=== PATIENT | male | born 1985 | race Caucasian/White ===

== ENCOUNTER 2023-02-25 04:41 | Emergency (ER) | payer BC ==
[2023-02-25 04:50] VITALS: BP 139/79; PULSE 95; RESP 18; TEMP 97.4
--- NOTE | 2023-02-25 05:02 | ED ---
General Adult HPI - General Chief complaint: Skin/Abscess/Foreign Body Stated complaint: foriegn body in rectum Time Seen by Provider: 02/25/23 04:51 Source: patient Mode of arrival: ambulatory Limitations: no limitations - History of Present Illness Initial comments: Dictation was produced using [employer] dictation software. please excuse any grammatical, word or spelling errors. Chief Complaint: 37-year-old male presents with rectal foreign body History of Present Illness: 37-year-old male presents emergency Department with rectal foreign body. Patient states that he was being intubated with his partner last night when shampoo bottle was placed into his rectum upside down. They tried to remove it however was unsuccessful. Patient denies any abdominal pain. No nausea vomiting. The ROS documented in this emergency department record has been reviewed and confirmed by me. Those systems with pertinent positive or negative responses have been documented in the HPI. All other systems are other negative and/or noncontributory. PHYSICAL EXAM: General Impression: Alert and oriented x3, not in acute distress HEENT: Normocephalic atraumatic, extra-ocular movements intact, pupils equal and reactive to light bilaterally, mucous membranes moist. Cardiovascular: Heart regular rate and rhythm Chest: Able to complete full sentences, no retractions, no tachypnea Abdomen: abdomen soft, non-tender, non-distended, no organomegaly Musculoskeletal: Pulses present and equal in all extremities, no peripheral edema Motor: no focal deficits noted Neurological: CN II-XII grossly intact, no focal motor or sensory deficits noted Skin: Intact with no visualized rashes Psych: Normal affect and mood Rectal exam: Foreign body palpated. ED course: 37-year-old male presents emergency department for rectal foreign body. Vital Signs upon arrival are within acceptable limits. Nursing notes and chart review was performed Patient is placed in lithotomy position. Foreign body was successfully removed. Patient observed emergency Department discharge. Percussion discussed. Was pt. sent in by a medical professional or institution (, PA, [employer]ADER, urgent care, hospital, or senior care...) When possible be specific @ -No Did you speak to anyone other than the patient for history (EMS, parent, family, police, friend...)? What history was obtained from this source @ -No Did you review nursing and triage notes (agree or disagree)? Why? @ -I reviewed and agree with nursing and triage notes Were old charts reviewed (outside hosp., previous admission, EMS record, old EKG, old radiological studies, urgent care reports/EKG's, senior care records)? Report findings @ -No old charts were reviewed Differential Diagnosis (chest pain, altered mental status, abdominal pain women, abdominal pain men, vaginal bleeding, musculoskeletal, weakness, fever, dyspnea, syncope, headache, dizziness, GI bleed, back pain, seizure, CVA, palpatations, mental health)? @ -not applicable EKG interpreted by me (3pts min.). @ -None done X-rays interpreted by me (1pt min.). @ -Rectal foreign body CT interpreted by me (1pt min.). @ -None done U/S interpreted by me (1pt. min.). @ -None done What testing was considered but not performed or refused? (CT, X-rays, U/S, labs)? Why? @ -None What meds were considered but not given or refused? Why? @ -None Did you discuss the management of the patient with other professionals (professionals i.e. , PA, [employer]ADER, lab, RT, psych nurse, social sciences department chair, data management consultant, te acher, learning officer, case filler)? Give summary @ -No Was smoking cessation discussed for >3mins.? @ -No Was critical care preformed (if so, how long)? @ -No Were there social determinants of health that impacted care today? How? (Homelessness, low income, unemployed, alcoholism, drug addiction, transportation, low edu. Level, literacy, decrease access to med. care, long term, rehab)? @ -No Was there de-escalation of care discussed even if they declined (Discuss DNR or withdrawal of care, Hospice)? DNR status @ -No What co-morbidities impacted this encounter? (DM, HTN, Smoking, COPD, CAD, Cancer, CVA, ARF, Chemo, Hep., AIDS, mental health diagnosis, sleep apnea, morbid obesity)? @ -None Was patient admitted / discharged? Hospital course, mention meds given and rou te, prescriptions, significant lab abnormalities, going to OR and other pertinent info. @ -See above Undiagnosed new problem with uncertain prognosis? @ -No Drug Therapy requiring intensive monitoring for toxicity (Heparin, Nitro, Insulin, Cardizem)? @ -No Were any procedures done? @ -Rectal foreign body removal Diagnosis/symptom? Acute, or Chronic, or Acute on Chronic? Uncomplicated (without systemic symptoms) or Complicated (systemic symptoms)? @ -1. Rectal foreign body Side effects of treatment? @ -No Exacerbation, Progression, or Severe Exacerbation? @ -No Poses a threat to life or bodily function? How? (Chest pain, [place], [place], pneumonia, PE, COPD, DKA, ARF, appy, cholecystitis, CVA, Diverticulitis, Homicidal, Suicidal, threat to staff... and all critical care pts) @ -No - Related Data Allergies Allergy/AdvReac Type Severity Reaction Status Date / Time No Known Allergies Allergy Verified 02/25/23 04:46 Review of Systems ROS Statement: Those systems with pertinent positive or pertinent negative responses have been documented in the HPI. ROS Other: All systems not noted in ROS Statement are negative. Past Medical History Past Medical History: No Reported History History of Any Multi-Drug Resistant Organisms: None Reported Past Surgical History: No Surgical Hx Reported Past Psychological History: No Psychological Hx Reported Smoking Status: Current every day smoker Past Alcohol Use History: Occasional Past Drug Use History: None Reported General Exam Limitations: no limitations Course Vital Signs 02/25/23 04:46 Temperature 97.4 F L Pulse Rate 95 Respiratory 18 Rate Blood Pressure 139/79 O2 Sat by Pulse 99 Oximetry Procedures - Forgein Body Removal Soft Tissue Consent Obtained: emergent situation Site: other (rectum) Foreign Body Suspected: Other (shampoo bottle) Foreign Body Removed: yes Foreign Body Removal Technique: Other (lithotomy with suprapubic pressure) Patient Tolerated Procedure: well Disposition Clinical Impression: Rectal foreign body Disposition: HOME SELF-CARE Condition: Good Instructions (If sedation given, give patient instructions): Rectal Foreign Body (ED) Is patient prescribed a controlled substance at d/c from ED?: No Referrals: None,Stated [Primary Care Provider] - 1-2 days Time of Disposition: 05:36
[2023-02-25] MEDS ORDERED: HYDROmorphone 1 MG/ML 1 ML SYRINGE IM STA (05:11)
--- NOTE | 2023-02-25 07:12 | XR ---
Abdomen. HISTORY: Foreign body in rectum. COMPARISON: None. TECHNIQUE: 3 views of the abdomen were obtained. These: There are 2 rectangular shaped foreign bodies in the rectum which are partially air-filled. The bowel gas pattern is normal and there is no evidence of obstruction. The lung bases are clear and there is no free air beneath the diaphragm. The osseous structures are intact. IMPRESSION: Foreign bodies within the rectum. No evidence of bowel obstruction or free air.
== END 2023-02-25 06:55 | disposition home or self-care (01) ==
LOC: EC 04:41
DX: T18.5XXA Foreign body in anus and rectum, initial encounter (principal); F17.200 Nicotine dependence, unspecified, uncomplicated
CPT/HCPCS: 74018; 99284; 96372; 45999; J1170

== ENCOUNTER 2025-03-26 05:05 | Inpatient (IN) | payer BC ==
--- NOTE | 2025-03-26 05:28 | ED ---
Syncope HPI - General Source: patient, RN notes reviewed, old records reviewed Mode of arrival: ambulatory Limitations: no limitations - History of Present Illness MD Complaint: loss of consciousness, almost passed out, collapsed -: days(s) Prodromal Symptoms: headache Description of Event: tonic-clonic movements -: second(s) Witnessed: yes - by bystander Injuries Sustained Associated with Event: None Current Symptoms: lightheaded History: other (Drug abuse) Context: during exertion, getting out of bed Treatments Prior to Arrival: none <Alistair Stevens - Last Filed: 03/30/25 19:32> <Joanie Be - Last Filed: 04/03/25 12:36> - General Chief Complaint: Fall Stated Complaint: Syncope Time Seen by Provider: 03/26/25 05:17 - History of Present Illness Initial Comments: This is a 39-year-old male to the ER for evaluation patient presents with possible syncopal event. Patient states he feels like he woke up in the shower admits to cocaine use yesterday denying any other drugs or alcohol denying any injuries or headaches, denying any chest pain or shortness of breath, denying any abdominal (Alistair Stevens) - Related Data Home Medications Medication Instructions Recorded Confirmed Dutasteride 0.5 mg PO DAILY 03/28/25 03/28/25 Allergies Allergy/AdvReac Type Severity Reaction Status Date / Time No Known Allergies Allergy Verified 03/26/25 10:31 Review of Systems ROS Other: All systems not noted in ROS Statement are negative. <Alistair Stevens - Last Filed: 03/30/25 19:32> ROS Other: All systems not noted in ROS Statement are negative. <Joanie Be - Last Filed: 04/03/25 12:36> ROS Statement: Those systems with pertinent positive or pertinent negative responses have been documented in the HPI. Past Medical History Past Medical History: No Reported History History of Any Multi-Drug Resistant Organisms: None Reported Past Surgical History: No Surgical Hx Reported Past Psychological History: No Psychological Hx Reported Smoking Status: Current every day smoker Past Alcohol Use History: Occasional Past Drug Use History: Cocaine - Past Family History Father Family Medical History: Myocardial Infarction (SD) <Alistair Stevens - Last Filed: 03/30/25 19:32> General Exam Limitations: no limitations General appearance: alert, in no apparent distress, anxious Head exam: Present: atraumatic, normocephalic, normal inspection Eye exam: Present: normal appearance, PERRL, EOMI. Absent: scleral icterus, conjunctival injection, periorbital swelling ENT exam: Present: normal exam, mucous membranes moist Neck exam: Present: normal inspection. Absent: tenderness, meningismus, lymphadenopathy Respiratory exam: Present: normal lung sounds bilaterally. Absent: respiratory distress, wheezes, rales, rhonchi, stridor Cardiovascular Exam: Present: normal rhythm, tachycardia, normal heart sounds. Absent: systolic murmur, diastolic murmur, rubs, gallop, clicks GI/Abdominal exam: Present: soft, normal bowel sounds. Absent: distended, tenderness, guarding, rebound, rigid Extremities exam: Present: normal inspection, full ROM, normal capillary refill. Absent: tenderness, pedal edema, joint swelling, calf tenderness Back exam: Present: normal inspection Neurological exam: Present: alert, oriented X3, CN II-XII intact Psychiatric exam: Present: normal affect, normal mood Skin exam: Present: warm, dry, intact, normal color. Absent: rash <Alistair Stevens - Last Filed: 03/30/25 19:32> Course <Alistair Stevens - Last Filed: 03/30/25 19:32> Vital Signs 03/26/25 03/26/25 03/26/25 05:07 07:14 09:09 Temperature 97.3 F L Pulse Rate 111 H 97 78 Respiratory 20 18 18 Rate Blood Pressure 152/93 152/93 132/79 O2 Sat by Pulse 99 98 97 Oximetry 03/26/25 03/26/25 12:24 14:41 Temperature 98.2 F Pulse Rate 77 66 Respiratory 18 18 Rate Blood Pressure 139/85 106/53 O2 Sat by Pulse 98 98 Oximetry - Reevaluation(s) Reevaluation #1: 03/26/25 05:52 Medical records reviewed (Alistair Stevens) Reevaluation #2: 03/26/25 05:52 Patient's symptoms improved (Alistair Stevens) Reevaluation #3: 03/26/25 05:52 Patient informed of results and questions answered (Alistair Stevens) Reevaluation #4: Was pt. sent in by a medical professional or institution ([facility], [employer], urgent care, hospital, or senior care...) When possible be specific @ -no Did you speak to anyone other than the patient for history (EMS, parent, family, police, friend...)? What history was obtained from this source @ -no Did you review nursing and triage notes (agree or disagree)? Why? @ -agree Are old charts reviewed (outside hosp., previous admission, EMS record, old EKG, old radiological studies, urgent care reports/EKG's, senior care records)? Report findings @ -yes Differential Diagnosis (chest pain, altered mental status, abdominal pain women, abdominal pain men, vaginal bleeding, weakness, fever, dyspnea, syncope, headache, dizziness, GI bleed, back pain, seizure, CVA, palpatations, mental health, musculoskeletal)? @ -prior EKG interpreted by me (3pts min.). @ -yes X-rays interpreted by me (1pt min.). @ -no CT interpreted by me (1pt min.). @ -yes negative for acute disease U/S interpreted by me (1pt. min.). @ -no What testing was considered but not performed or refused? (CT, X-rays, U/S, labs)? Why? @ -none What meds were considered but not given or refused? Why? @ -none Did you discuss the management of the patient with other professionals (professionals i.e. [facility], [employer], lab, RT, psych nurse, social service assistant, newspaper press operator apprentice, teacher, program officer, case advocate)? Give summary @ -no Was smoking cessation discussed for >3mins.? @ -no Was critical care preformed (if so, how long)? @ -yes31 Were there social determinants of health that impacted care today? How? (Homelessness, low income, unemployed, alcoholism, drug addiction, transportation, low edu. Level, literacy, decrease access to med. care, [facility], rehab)? @ -none Was there de-escalation of care discussed even if they declined (Discuss DNR or withdrawal of care, Hospice)? DNR status @ -no What co-morbidities impacted this encounter? (DM, HTN, Smoking, COPD, CAD, Cancer, CVA, ARF, Chemo, Hep., AIDS, mental health diagnosis, sleep apnea, morbid obesity)? @ -none Was patient admitted / discharged? Hospital course, mention meds given and route, prescriptions, significant lab abnormalities, going to OR and other pertinent info. @ - 39 male to ER for evaluation of being found down. Patient is unsure of how he got for how long he was there for severe rhabdomyolysis noted here in the ER there is concern for compartment syndrome consult Ortho, patient has polysubstance abuse and likely overdose with syncopal event Admitted Undiagnosed new problem with uncertain prognosis? @ -no Drug Therapy requiring intensive monitoring for toxicity (Heparin, Nitro, Insulin, Cardizem)? @ -no Were any procedures done? @ -no Diagnosis/symptom? @ -rhabdomyolysis, syncope altered mental status polysubstance abuse Acute, or Chronic, or Acute on Chronic? @ -Acute Uncomplicated (without systemic symptoms) or Complicated (systemic symptoms)? @ -Complicated Side effects of treatment? @ -no Exacerbation, Progression, or Severe Exacerbation? @ -exacerbation Poses a threat to life or bodily function? How? (Chest pain, USA, SD, pneumonia, PE, COPD, DKA, ARF, appy, cholecystitis, CVA, Diverticulitis, Homicidal, Suicidal, threat to staff... and all critical care pts) @ -yes severe overdose with syncope (Alistair Stevens) Reevaluation #5: Differential Syncope: Valvular disease, hypertrophic cardiomyopathy, pulmonary embolism, tamponade, tachycardia, bradycardia, SD, hypovolemia, hemorrhage, dissection, anemia, intracranial hemorrhage, seizure, hypoglycemia, carbon monoxide poisoning, this is not meant to be an all-inclusive list. (Alistair Stevens) - Consultations Consultation #1: With admitting physicians agreed to admit this patient (Alistair Stevens) EKG Findings - EKG Comments: EKG Findings:: EKG is sinus 97 AK 160 QRS 96 QTc 441 - EKG Results: EKG: interpreted by [facility] <Alistair Stevens - Last Filed: 03/30/25 19:32> Medical Decision Making - Lab Data Result diagrams: 03/27/25 07:56 03/28/25 07:19 - EKG Data -: EKG Interpreted by Me - Radiology Data Radiology results: report reviewed (CT brain C-spine CTA chest abdomen pelvis negative for acute disease), image reviewed <Alistair Stevens - Last Filed: 03/30/25 19:32> - Lab Data Result diagrams: 03/27/25 07:56 03/28/25 07:19 <Joanie Be - Last Filed: 04/03/25 12:36> - Medical Decision Making 39 male to ER for evaluation of being found down. Patient is unsure of how he got for how long he was there for severe rhabdomyolysis noted here in the ER there is concern for compartment syndrome consult Ortho, patient has polysubsta nce abuse and likely overdose with syncopal event (Alistair Stevens) Was patient admitted / discharged? Hospital course, mention meds given and route, prescriptions, significant lab abnormalities, going to OR and other pertinent info. @ -Patient was signed out to me from previous physician. I did review the patient's laboratory studies which demonstrates significantly elevated of 107,000. Patient reports to pain in the lower extremity with some numbness. Patient does have significant rhabdomyolysis with concern for compartment syndrome versus neuropraxia. Informed the patient that he requires admission for IV fluids and orthopedic consult. Patient was agreeable to this. I spoke with Steve saldivar for the admission Undiagnosed new problem with uncertain prognosis? @ -Yes Drug Therapy requiring intensive monitoring for toxicity (Heparin, Nitro, Insul in, Cardizem)? @ -No Were any procedures done? @ -No Diagnosis/symptom? @ -Acute syncope, prolonged downtime, cocaine use, acute rhabdomyolysis, suspected neuropraxia right lower extremity versus compartment syndrome Acute, or Chronic, or Acute on Chronic? @ -Acute Uncomplicated (without systemic symptoms) or Complicated (systemic symptoms)? @ -Complicated Side effects of treatment? @ -No Exacerbation, Progression, or Severe Exacerbation? @ -No Poses a threat to life or bodily function? How? (Chest pain, USA, SD, pneumonia, PE, COPD, DKA, ARF, appy, cholecystitis, CVA, Diverticulitis, Homicidal, Suicidal, threat to staff... and all critical care pts) @ -Yes this patient does have significantly elevated CK (Joanie Be) - Lab Data Lab Results 03/26/25 03/26/25 03/26/25 Range/Units 05:38 05:38 05:38 WBC 19.73 H (4.50-10.00) 10*3/uL RBC 5.36 (4.40-5.60) 10*6/uL Hgb 17.0 (13.0-17.0) g/dL Hct 47.9 (39.6-50.0) % MCV 89.4 (80.0-97.0) fL MCH 31.7 (27.0-32.0) pg MCHC 35.5 (32.0-37.0) g/dL Plt Count 289 (140-440) 10*3/uL MPV 10.2 (9.5-12.2) fL Immature Gran % (Auto) 0.8 % Neutrophils % 78.0 % Lymphocytes % 7.8 % Monocytes % 13.2 % Eosinophils % 0.0 % Basophils % 0.2 % Immature Gran # 0.16 H (0.00-0.04) 10*3/uL Neutrophils # 15.39 H (1.80-7.70) 10*3/uL Lymphocytes # 1.54 (0.90-5.00) 10*3/uL Monocytes # 2.61 H (0.20-1.00) 10*3/uL Eosinophils # 0.00 L (0.04-0.35) 10*3/uL Basophils # 0.03 (0.00-0.10) 10*3/uL PT 12.2 (10.0-12.5) sec INR 1.1 (<1.2) APTT 26.0 (22.0-30.0) sec D-Dimer 0.54 (<0.60) mg/L FEU Sodium 137 (137-145) mmol/L Potassium 3.6 (3.5-5.1) mmol/L Chloride 102 (98-107) mmol/L Carbon Dioxide 23 (22-30) mmol/L Anion Gap 12 mmol/L BUN 36 H (9-20) mg/dL Creatinine 1.05 (0.66-1.25) mg/dL Est GFR (CKD-EPI)AfAm >90 (>60 ml/min/1.73 sqM) Est GFR (CKD-EPI)NonAf >90 (>60 ml/min/1.73 sqM) Glucose 135 H (74-99) mg/dL Plasma Lactic Acid Elliott (0.7-2.0) mmol/L Calcium 8.8 (8.4-10.2) mg/dL Phosphorus 4.1 (2.5-4.5) mg/dL Magnesium 2.7 H (1.6-2.3) mg/dL Total Bilirubin 1.5 H (0.2-1.3) mg/dL AST 2008 H (17-59) U/L ALT 459 H (4-49) U/L Alkaline Phosphatase 79 (38-126) U/L Ammonia (<30) umol/L Creatine Kinase (55-170) U/L Troponin I (0.000-0.034) ng/mL NT-Pro-B Natriuret Pep 1500 pg/mL Total Protein 7.7 (6.3-8.2) g/dL Albumin 4.7 (3.5-5.0) g/dL Urine Color Urine Appearance (Clear) Urine pH (5.0-8.0) Ur Specific Griffin (1.001-1.035) Urine Protein (Negative) Urine Glucose (UA) (Negative) Urine Ketones (Negative) Urine Blood (Negative) Urine Nitrite (Negative) Urine Bilirubin (Negative) Urine Urobilinogen (<2.0) mg/dL Ur Leukocyte Esterase (Negative) Urine RBC (0-5) /hpf Urine WBC (0-5) /hpf Ur Squamous Epith Cells (0-4) /hpf Urine Bacteria (None) /hpf Urine Mucus (None) /hpf Salicylates mg/dL Urine Opiates Screen (NotDetected) Ur Oxycodone Screen (NotDetected) Urine Methadone Screen (NotDetected) Acetaminophen ug/mL Ur Barbiturates Screen (NotDetected) U Tricyclic Antidepress (NotDetected) Ur Phencyclidine Scrn (NotDetected) Ur Amphetamines Screen (NotDetected) U Methamphetamines Scrn (NotDetected) U Benzodiazepines Scrn (NotDetected) Urine Cocaine Screen (NotDetected) U Marijuana (THC) Screen (NotDetected) Hepatitis A IgM Ab (Nonreactive) Hep Bs Antigen (Nonreactive) Hep B Core IgM Ab (Nonreactive) Hep C IgG Ab (Nonreactive) 03/26/25 03/26/2525 Range/Units 05:38 05:38 07:08 WBC (4.50-10.00) 10*3/uL RBC (4.40-5.60) 10*6/uL Hgb (13.0-17.0) g/dL Hct (39.6-50.0) % MCV (80.0-97.0) fL MCH (27.0-32.0) pg MCHC (32.0-37.0) g/dL Plt Count (140-440) 10*3/uL MPV (9.5-12.2) fL Immature Gran % (Auto) % Neutrophils % % Lymphocytes % % Monocytes % % Eosinophils % % Basophils % % Immature Gran # (0.00-0.04) 10*3/uL Neutrophils # (1.80-7.70) 10*3/uL Lymphocytes # (0.90-5.00) 10*3/uL Monocytes # (0.20-1.00) 10*3/uL Eosinophils # (0.04-0.35) 10*3/uL Basophils # (0.00-0.10) 10*3/uL PT (10.0-12.5) sec INR (<1.2) APTT (22.0-30.0) sec D-Dimer (<0.60) mg/L FEU Sodium (137-145) mmol/L Potassium (3.5-5.1) mmol/L Chloride (98-107) mmol/L Carbon Dioxide (22-30) mmol/L Anion Gap mmol/L BUN (9-20) mg/dL Creatinine (0.66-1.25) mg/dL Est GFR (CKD-EPI)AfAm (>60 ml/min/1.73 sqM) Est GFR (CKD-EPI)NonAf (>60 ml/min/1.73 sqM) Glucose (74-99) mg/dL Plasma Lactic Acid Elliott 1.3 (0.7-2.0) mmol/L Calcium (8.4-10.2) mg/dL Phosphorus (2.5-4.5) mg/dL Magnesium (1.6-2.3) mg/dL Total Bilirubin (0.2-1.3) mg/dL AST (17-59) U/L ALT (4-49) U/L Alkaline Phosphatase (38-126) U/L Ammonia (<30) umol/L Creatine Kinase 943329 H* (55-170) U/L Troponin I 0.051 H* (0.000-0.034) ng/mL NT-Pro-B Natriuret Pep pg/mL Total Protein (6.3-8.2) g/dL Albumin (3.5-5.0) g/dL Urine Color Urine Appearance (Clear) Urine pH (5.0-8.0) Ur Specific Griffin (1.001-1.035) Urine Protein (Negative) Urine Glucose (UA) (Negative) Urine Ketones (Negative) Urine Blood (Negative) Urine Nitrite (Negative) Urine Bilirubin (Negative) Urine Urobilinogen (<2.0) mg/dL Ur Leukocyte Esterase (Negative) Urine RBC (0-5) /hpf Urine WBC (0-5) /hpf Ur Squamous Epith Cells (0-4) /hpf Urine Bacteria (None) /hpf Urine Mucus (None) /hpf Salicylates <1.0 mg/dL Urine Opiates Screen (NotDetected) Ur Oxycodone Screen (NotDetected) Urine Methadone Screen (NotDetected) Acetaminophen <10.0 ug/mL Ur Barbiturates Screen (NotDetected) U Tricyclic Antidepress (NotDetected) Ur Phencyclidine Scrn (NotDetected) Ur Amphetamines Screen (NotDetected) U Methamphetamines Scrn (NotDetected) U Benzodiazepines Scrn (NotDetected) Urine Cocaine Screen (NotDetected) U Marijuana (THC) Screen (NotDetected) Hepatitis A IgM Ab (Nonreactive) Hep Bs Antigen (Nonreactive) Hep B Core IgM Ab (Nonreactive) Hep C IgG Ab (Nonreactive) 03/26/25 03/26/25 03/26/25 Range/Units 07:08 07:08 07:14 WBC (4.50-10.00) 10*3/uL RBC (4.40-5.60) 10*6/uL Hgb (13.0-17.0) g/dL Hct (39.6-50.0) % MCV (80.0-97.0) fL MCH (27.0-32.0) pg MCHC (32.0-37.0) g/dL Plt Count (140-440) 10*3/uL MPV (9.5-12.2) fL Immature Gran % (Auto) % Neutrophils % % Lymphocytes % % Monocytes % % Eosinophils % % Basophils % % Immature Gran # (0.00-0.04) 10*3/uL Neutrophils # (1.80-7.70) 10*3/uL Lymphocytes # (0.90-5.00) 10*3/uL Monocytes # (0.20-1.00) 10*3/uL Eosinophils # (0.04-0.35) 10*3/uL Basophils # (0.00-0.10) 10*3/uL PT (10.0-12.5) sec INR (<1.2) APTT (22.0-30.0) sec D-Dimer (<0.60) mg/L FEU Sodium (137-145) mmol/L Potassium (3.5-5.1) mmol/L Chloride (98-107) mmol/L Carbon Dioxide (22-30) mmol/L Anion Gap mmol/L BUN (9-20) mg/dL Creatinine (0.66-1.25) mg/dL Est GFR (CKD-EPI)AfAm (>60 ml/min/1.73 sqM) Est GFR (CKD-EPI)NonAf (>60 ml/min/1.73 sqM) Glucose (74-99) mg/dL Plasma Lactic Acid Elliott (0.7-2.0) mmol/L Calcium (8.4-10.2) mg/dL Phosphorus (2.5-4.5) mg/dL Magnesium (1.6-2.3) mg/dL Total Bilirubin (0.2-1.3) mg/dL AST (17-59) U/L ALT (4-49) U/L Alkaline Phosphatase (38-126) U/L Ammonia 10 (<30) umol/L Creatine Kinase (55-170) U/L Troponin I (0.000-0.034) ng/mL NT-Pro-B Natriuret Pep pg/mL Total Protein (6.3-8.2) g/dL Albumin (3.5-5.0) g/dL Urine Color Light Red Urine Appearance Cloudy (Clear) Urine pH 5.5 (5.0-8.0) Ur Specific Griffin 1.016 (1.001-1.035) Urine Protein 2+ H (Negative) Urine Glucose (UA) Negative (Negative) Urine Ketones Trace H (Negative) Urine Blood Large H (Negative) Urine Nitrite Negative (Negative) Urine Bilirubin Negative (Negative) Urine Urobilinogen <2.0 (<2.0) mg/dL Ur Leukocyte Esterase Negative (Negative) Urine RBC 1 (0-5) /hpf Urine WBC 12 H (0-5) /hpf Ur Squamous Epith Cells <1 (0-4) /hpf Urine Bacteria Rare H (None) /hpf Urine Mucus Rare H (None) /hpf Salicylates mg/dL Urine Opiates Screen (NotDetected) Ur Oxycodone Screen (NotDetected) Urine Methadone Screen (NotDetected) Acetaminophen ug/mL Ur Barbiturates Screen (NotDetected) U Tricyclic Antidepress (NotDetected) Ur Phencyclidine Scrn (NotDetected) Ur Amphetamines Screen (NotDetected) U Methamphetamines Scrn (NotDetected) U Benzodiazepines Scrn (NotDetected) Urine Cocaine Screen (NotDetected) U Marijuana (THC) Screen (NotDetected) Hepatitis A IgM Ab Nonreactive (Nonreactive) Hep Bs Antigen Nonreactive (Nonreactive) Hep B Core IgM Ab Nonreactive (Nonreactive) Hep C IgG Ab Nonreactive (Nonreactive) 03/26/25 Range/Units 07:14 WBC (4.50-10.00) 10*3/uL RBC (4.40-5.60) 10*6/uL Hgb (13.0-17.0) g/dL Hct (39.6-50.0) % MCV (80.0-97.0) fL MCH (27.0-32.0) pg MCHC (32.0-37.0) g/dL Plt Count (140-440) 10*3/uL MPV (9.5-12.2) fL Immature Gran % (Auto) % Neutrophils % % Lymphocytes % % Monocytes % % Eosinophils % % Basophils % % Immature Gran # (0.00-0.04) 10*3/uL Neutrophils # (1.80-7.70) 10*3/uL Lymphocytes # (0.90-5.00) 10*3/uL Monocytes # (0.20-1.00) 10*3/uL Eosinophils # (0.04-0.35) 10*3/uL Basophils # (0.00-0.10) 10*3/uL PT (10.0-12.5) sec INR (<1.2) APTT (22.0-30.0) sec D-Dimer (<0.60) mg/L FEU Sodium (137-145) mmol/L Potassium (3.5-5.1) mmol/L Chloride (98-107) mmol/L Carbon Dioxide (22-30) mmol/L Anion Gap mmol/L BUN (9-20) mg/dL Creatinine (0.66-1.25) mg/dL Est GFR (CKD-EPI)AfAm (>60 ml/min/1.73 sqM) Est GFR (CKD-EPI)NonAf (>60 ml/min/1.73 sqM) Glucose (74-99) mg/dL Plasma Lactic Acid Elliott (0.7-2.0) mmol/L Calcium (8.4-10.2) mg/dL Phosphorus (2.5-4.5) mg/dL Magnesium (1.6-2.3) mg/dL Total Bilirubin (0.2-1.3) mg/dL AST (17-59) U/L ALT (4-49) U/L Alkaline Phosphatase (38-126) U/L Ammonia (<30) umol/L Creatine Kinase (55-170) U/L Troponin I (0.000-0.034) ng/mL NT-Pro-B Natriuret Pep pg/mL Total Protein (6.3-8.2) g/dL Albumin (3.5-5.0) g/dL Urine Color Urine Appearance (Clear) Urine pH (5.0-8.0) Ur Specific Griffin (1.001-1.035) Urine Protein (Negative) Urine Glucose (UA) (Negative) Urine Ketones (Negative) Urine Blood (Negative) Urine Nitrite (Negative) Urine Bilirubin (Negative) Urine Urobilinogen (<2.0) mg/dL Ur Leukocyte Esterase (Negative) Urine RBC (0-5) /hpf Urine WBC (0-5) /hpf Ur Squamous Epith Cells (0-4) /hpf Urine Bacteria (None) /hpf Urine Mucus (None) /hpf Salicylates mg/dL Urine Opiates Screen Not Detected (NotDetected) Ur Oxycodone Screen Not Detected (NotDetected) Urine Methadone Screen Not Detected (NotDetected) Acetaminophen ug/mL Ur Barbiturates Screen Not Detected (NotDetected) U Tricyclic Antidepress Not Detected (NotDetected) Ur Phencyclidine Scrn Not Detected (NotDetected) Ur Amphetamines Screen Not Detected (NotDetected) U Methamphetamines Scrn Not Detected (NotDetected) U Benzodiazepines Scrn Not Detected (NotDetected) Urine Cocaine Screen Detected H (NotDetected) U Marijuana (THC) Screen Not Detected (NotDetected) Hepatitis A IgM Ab (Nonreactive) Hep Bs Antigen (Nonreactive) Hep B Core IgM Ab (Nonreactive) Hep C IgG Ab (Nonreactive) Critical Care Time Critical Care Time: Yes Total Critical Care Time: 31 <Alistair Stevens - Last Filed: 03/30/25 19:32> Disposition <Alistair Stevens - Last Filed: 03/30/25 19:32> Is patient prescribed a controlled substance at d/c from ED?: No Time of Disposition: 09:50 Decision to Admit Reason: Admit from EC Decision Date: 03/26/25 Decision Time: 09:50 <Joanie Be - Last Filed: 04/03/25 12:36> Clinical Impression: Fall, Rhabdomyolysis, Transaminitis, Cocaine use, Alcohol use Disposition: ADMITTED IP TO THIS [facility] Condition: Serious
[2025-03-26] MEDS: SODIUM CHLORIDE 0.9% 1,000 ML IV ONE ×4 (05:43→10:40)
--- NOTE | 2025-03-26 06:10 | CT ---
EXAM: CT Head Without Intravenous Contrast CLINICAL HISTORY: ITS.REASON CT Reason: ams TECHNIQUE: Axial computed tomography images of the head/brain without intravenous contrast. CTDI is 45.3 mGy and DLP is 1027 mGy-cm. This CT exam was performed using one or more of the following dose reduction techniques: automated exposure control, adjustment of the mA and/or kV according to patient size, and/or use of iterative reconstruction technique. COMPARISON: No relevant prior studies available. FINDINGS: Brain: Low lying cerebellar tonsils, 4 mm below the skull base. No hemorrhage. No significant white matter disease. Ventricles: Unremarkable. No ventriculomegaly. Bones/joints: Unremarkable. No acute fracture. Soft tissues: Unremarkable. Sinuses: Unremarkable as visualized. No acute sinusitis. Mastoid air cells: Unremarkable as visualized. No mastoid effusion. IMPRESSION: 1. No acute findings in the head/brain. 2. Low lying cerebellar tonsils EXAM: CT Cervical Spine Without Intravenous Contrast CLINICAL HISTORY: ITS.REASON CT Reason: ams TECHNIQUE: Axial computed tomography images of the cervical spine without intravenous contrast. CTDI is 13.3 mGy and DLP is 371 mGy-cm. This CT exam was performed using one or more of the following dose reduction techniques: automated exposure control, adjustment of the mA and/or kV according to patient size, and/or use of iterative reconstruction technique. COMPARISON: No relevant prior studies available. FINDINGS: Vertebrae: Unremarkable. No acute fracture. Discs/spinal canal/neural foramina: Degenerative changes of the mid cervical spine. No canal stenosis. Soft tissues: Unremarkable. IMPRESSION: No acute findings in the cervical spine.
[2025-03-26 06:20] LABS: ALT 459 U/L (4-49); African American GFR (CKD) >90 (>60 ml/min/1.73 sqM); Albumin 4.7 g/dL (3.5-5.0); Anion Gap 12 mmol/L; Blood Urea Nitrogen 36 mg/dL (9-20); Calcium 8.8 mg/dL (8.4-10.2); Carbon Dioxide 23 mmol/L (22-30); Chloride 102 mmol/L (98-107); Glucose 135 mg/dL (74-99); Non-African American GFR(CKD) >90 (>60 ml/min/1.73 sqM); Sodium 137 mmol/L (137-145); Total Bilirubin 1.5 mg/dL (0.2-1.3); Total Protein 7.7 g/dL (6.3-8.2)
[2025-03-26] MEDS ORDERED: LORazepam 2 MG/ML INJ IV PRN (06:22)
[2025-03-26 06:25] LABS: Magnesium 2.7 mg/dL (1.6-2.3); Phosphorus 4.1 mg/dL (2.5-4.5); Potassium 3.6 mmol/L (3.5-5.1)
[2025-03-26 06:26] LABS: Alkaline Phosphatase 79 U/L (38-126)
[2025-03-26 06:28] LABS: NT-Pro-B-Type Natriuretic Pept 1500 pg/mL
[2025-03-26 06:49] LABS: AST 2008 U/L (17-59)
[2025-03-26 06:54] LABS: Basophils # (A) 0.03 10*3/uL (0.00-0.10); Basophils % (A) 0.2 %; HCT 47.9 % (39.6-50.0); Lymphocytes # (A) 1.54 10*3/uL (0.90-5.00); Lymphocytes % (A) 7.8 %; MCH 31.7 pg (27.0-32.0); MCHC 35.5 g/dL (32.0-37.0); MCV 89.4 fL (80.0-97.0); Mean Platelet Volume 10.2 fL (9.5-12.2); Monocytes # (A) 2.61 10*3/uL (0.20-1.00); Monocytes % (A) 13.2 %; Neutrophils # (A) 15.39 10*3/uL (1.80-7.70); Platelet Count 289 10*3/uL (140-440); RBC 5.36 10*6/uL (4.40-5.60); WBC 19.73 10*3/uL (4.50-10.00)
[2025-03-26] MEDS: LORazepam 2 MG/ML INJ IV STA (07:14)
[2025-03-26 07:21] LABS: INR 1.1 (<1.2); Prothrombin Time 12.2 sec (10.0-12.5)
--- NOTE | 2025-03-26 07:50 | CT ---
EXAMINATION TYPE: CT angio chest DATE OF EXAM: 03/26/2025 COMPARISON: NONE CLINICAL INDICATION: Male, 39 years old with history of pe, Syncope, elevated troponin, TECHNIQUE: CTA scan of the thorax is performed with IV Contrast, patient injected with 100 mL of Isovue 370, pul monary embolism protocol. MIP Images are created on CT scanner and reviewed. CT DLP: 1582.2 mGycm. Automated Exposure Control for Dose Reduction was Utilized. FINDINGS: LUNGS: The lungs are grossly clear, there is no concerning parenchymal mass or focal consolidation id entified. There is no pleural effusion or pneumothorax seen. The tracheobronchial tree is patent. HEART: Size within normal limits. No significant coronary artery calcifications. MEDIASTINUM: Suboptimal study with most dense contrast in the SVC. No convincing CT evidence for acut e pulmonary embolism. Few prominent bilateral hilar lymph nodes. No pericardial effusion is seen. OTHER: Please refer to same day CT abdomen and pelvis report for complete details on the upper abdome n. IMPRESSION: Suboptimal study without acute pulmonary embolism. No suspicious acute pulmonary process. [facility], , 03/26/2025 7:47 AM
--- NOTE | 2025-03-26 07:53 | CT ---
EXAMINATION TYPE: CT abdomen pelvis w con DATE OF EXAM: 03/26/2025 COMPARISON: NONE CLINICAL INDICATION: Male, 39 years old with history of hepatitis, Elevated liver enzymes, TECHNIQUE: CT scan of the abdomen and pelvis is performed with IV Contrast, patient injected with 100 mL of Isov ue 370., (none if empty) Oral contrast used: without Oral Contrast (none if empty) CT DLP: 1582.2 mGycm, Automated exposure control for dose reduction was used. FINDINGS: LUNG BASES: Please refer to same-day CT chest for complete details on the lower lungs. LIVER/GB: But there is heterogeneously hypodense consistent with diffuse fatty infiltration. No bilia ry dilatation. PANCREAS: No significant abnormality is seen. SPLEEN: Punctate calcification throughout the spleen are present. ADRENALS: No significant abnormality is seen. KIDNEYS: No significant abnormality is seen. BOWEL: Normal-appearing appendix from cecum. No abnormal small or large bowel dilatation. Hyperdense material within the cecal base could reflect ingested food products or nondigested pill. PROSTATE/SEMINAL VESICLES: No gross abnormality seen. LYMPH NODES: No greater than 1cm abdominal or pelvic lymph nodes are appreciated. OSSEOUS STRUCTURES: No significant abnormality is seen. OTHER: No significant additional abnormality is seen. IMPRESSION: Heterogeneous hypodense appearance of the liver consistent with diffuse fatty infiltrati on and/or underlying hepatocellular disease. No significant acute finding is identified. [facility], , 03/26/2025 7:50 AM
[2025-03-26 09:13] LABS: Appearance,Urine Cloudy (Clear); Bacteria,Urine Rare /hpf; Bilirubin,Urine Negative (Negative); Blood,Urine Large (Negative); Color,Urine Light Red; Glucose,Urine (UA) Negative (Negative); Ketones,Urine Trace (Negative); Leukocyte Esterase,Urine Negative (Negative); Mucus,Urine Rare /hpf; Nitrite,Urine Negative (Negative); PH, Urine 5.5 (5.0-8.0); Protein,Urine 2+ (Negative); RBC,Urine 1 /hpf (0-5); Specific Gravity,Urine 1.016 (1.001-1.035); Squamous Epithelial Cell,Urine <1 /hpf (0-4); Urobilinogen,Urine <2.0 mg/dL (<2.0); WBC,Urine 12 /hpf (0-5)
[2025-03-26 09:37] LABS: Amphetamine Screen,Urine Not Detected (NotDetected); Barbiturate Screen,Urine Not Detected (NotDetected); Benzodiazepines Screen,Urine Not Detected (NotDetected); Cocaine Screen,Urine Detected (NotDetected); Methadone Screen, Urine Not Detected (NotDetected); Opiate Screen,Urine Not Detected (NotDetected); Oxycodone Screen, Urine Not Detected (NotDetected); Phencyclidine Screen,Urine Not Detected (NotDetected); Tricyclic Antidepressant,Urine Not Detected (NotDetected); Urn Cannabinoid Scrn Not Detected (NotDetected)
[2025-03-26 09:48] LABS: Acetaminophen <10.0 ug/mL; Salicylate <1.0 mg/dL
[2025-03-26] MEDS ORDERED: NALOXONE 0.4 MG/ML 1 ML VIAL IV PRN ×2 (09:51→11:44)
[2025-03-26] MEDS: PANTOPRAZOLE 40 MG/10 ML VIAL IV SCH (09:59)
[2025-03-26] MEDS: SODIUM CHLORIDE 0.9% 1,000 ML IV SCH (10:00)
[2025-03-26 10:09] LABS: Creatine Kinase 107344 U/L (55-170)
[2025-03-26] MEDS: LACTATED RINGERS 1,000 ML IV ONE (10:21)
[2025-03-26 11:36] LABS: African American GFR (CKD) >90 (>60 ml/min/1.73 sqM); Anion Gap 6 mmol/L; Blood Urea Nitrogen 28 mg/dL (9-20); Calcium 7.8 mg/dL (8.4-10.2); Carbon Dioxide 25 mmol/L (22-30); Chloride 107 mmol/L (98-107); Glucose 108 mg/dL (74-99); Non-African American GFR(CKD) >90 (>60 ml/min/1.73 sqM); Potassium 3.6 mmol/L (3.5-5.1); Sodium 138 mmol/L (137-145)
[2025-03-26] MEDS ORDERED: LACTATED RINGERS 1,000 ML IV SCH (11:40)
[2025-03-26] MEDS ORDERED: LORazepam 1 MG TAB PO PRN ×2 (11:43)
[2025-03-26] MEDS ORDERED: LORazepam 0.5 MG TAB PO PRN (11:43)
[2025-03-26] MEDS ORDERED: ONDANSETRON 4 MG/2 ML VIAL IVP PRN (11:44)
--- NOTE | 2025-03-26 11:53 | P.HPIM ---
History of Present Illness H&P Date: 03/26/25 Patient is a 39-year-old male with past medical history of daily alcohol use, cocaine use, marijuana use, who presented to the ER on . He was drinking and using cocaine yesterday, he believes that he lost his consciousness while in the bath, unsure if he had any fall, he spent hours in the bath, not sure how many hours. He says that he has been drinking 1/5 of tequila daily for years, no history of alcohol withdrawal, seizures, DTs. Has never tried to quit. He is complaining of right lower extremity numbness and pain. He says that he woke up with his right lower extremity placed against the the wall of the bath. On arrival he was afebrile, tachycardic in the 90s, BP elevated 139/79, SpO2 99% on room air. CBC showed leukocytosis 19.73 with left shift, normal hemoglobin and platelet count, unremarkable coagulation panel with normal D-dimer, sodium, potassium, chloride, bicarb normal, BUN 36, creatinine 1.05, glucose 135, lactic acid 1.3, phosphorus 4.1, magnesium elevated 2.7, total bilirubin elevated 1.5, elevated AST and ALT 2008 and 459 accordingly, alk phos normal, troponin elevated 0.0 51, BNP normal, CK came back elevated [id number]. UA suggestive of rhabdomyolysis with large amount of urine blood and just 1 urine RBC, proteinuria 2+, UDS positive for cocaine. Patient underwent extensive imaging including CT head and neck that showed no acute finding, CTA ches, abdomen pelvis t, suboptimal study without acute PE, few prominent bilateral hilar lymph nodes, heterogenous hypodense appearance of the liver consistent with diffuse fatty infiltration and/or underlying hepatocellular disease.. EKG showed sinus rhythm, no acute ST elevation, QTc 441. Pertinent positives and negatives as discussed in HPI, a complete review of systems was performed and all other systems are negative. Patient seen and examined at bedside. Vital signs reviewed General: nontoxic, no distress, appears at stated age Derm: warm, dry Head: atraumatic, normocephalic, symmetric Eyes: EOMI, no lid lag, anicteric sclera, pupils equal round reactive to light ENT: Nose and ears atraumatic Neck: No thyromegaly, supple Mouth: no lip lesion, mucus membranes moist Cardiovascular: S1S2 reg, no murmur, no edema Lungs: clear to auscultation bilateral, no rhonchi, no rales, no wheeze, no accessory muscle use Abdominal: soft, nontender to palpation, no guarding, no appreciable organomegaly Ext: no gross muscle atrophy, muscle strength muscle strength 5 out of 5 in all 4 extremities, no contractures, right ankle decreased ROM, nontender to palpation, reports numbness Neuro: CN II-XII grossly intact Psych: Alert, oriented, appropriate affect Assessment/Plan: Possible syncope versus alcohol and cocaine intoxication Immobilization for unknown duration Rhabdomyolysis secondary to above Leukocytosis, likely reactive secondary to above Elevated troponin likely secondary to above - Received 3 L of IV normal saline in the ER, added additional 1 L of normal saline, continue with NS gtt. at 200 cc/h - Repeat CK and BMP ordered for this afternoon - Recheck CK in the morning as well as CMP, magnesium and phosphorus - Strict I's and O's - Telemetry - Continue trending troponins, patient is chest pain-free -monitor kidney function closely, patient is a high risk for developing renal failure Elevated liver enzymes and a negative alcoholic Elevated total bilirubin Fatty liver infiltration - Hepatitis panel ordered and pending - GI consulted Alcohol use disorder Cocaine use disorder -CIWA with Ativan, thiamine 100 mg p.o. daily, folic acid 1 mg p.o. daily, social work consulted, discussed importance of cessation Right ankle pain and numbness -Orthopedic surgery consulted -X-ray ordered The patient is admitted with an anticipated greater than 2 midnight stay as inpatient status for evaluation of rhabdomyolysis. CODE STATUS: Full code DVT prophylaxis: hepairn Anticipated discharge date: TBD Anticipated discharge place: [facility] A total of 45minutes was spent on the care of this complex patient more than 50% of the time was spent in counseling and care coordination. Past Medical History Past Medical History: No Reported History History of Any Multi-Drug Resistant Organisms: None Reported Past Surgical History: No Surgical Hx Reported Past Psychological History: No Psychological Hx Reported Smoking Status: Current every day smoker Past Alcohol Use History: Occasional Past Drug Use History: Cocaine Medications and Allergies Home Medications Medication Instructions Recorded Confirmed Type No Known Home Medications 03/26/25 03/26/25 History Allergies Allergy/AdvReac Type Severity Reaction Status Date / Time No Known Allergies Allergy Verified 03/26/25 10:31 Physical Exam Vitals: Vital Signs Temp Pulse Resp BP Pulse Ox 03/26/25 09:09 78 18 132/79 97 03/26/25 07:14 97 18 152/93 98 03/26/25 05:07 97.3 F L 111 H 20 152/93 99 Intake and Output 03/25/25 03/26/25 03/26/25 22:59 06:59 14:59 Other: Weight 99.79 kg Results CBC & Chem 7: 03/26/25 05:38 03/26/25 05:38 Labs: Abnormal Lab Results - Last 24 Hours (Table) 03/26/25 03/26/25 03/26/25 Range/Units 05:38 05:38 05:38 WBC 19.73 H (4.50-10.00) 10*3/uL Immature Gran # 0.16 H (0.00-0.04) 10*3/uL Neutrophils # 15.39 H (1.80-7.70) 10*3/uL Monocytes # 2.61 H (0.20-1.00) 10*3/uL Eosinophils # 0.00 L (0.04-0.35) 10*3/uL BUN 36 H (9-20) mg/dL Glucose 135 H (74-99) mg/dL Magnesium 2.7 H (1.6-2.3) mg/dL Total Bilirubin 1.5 H (0.2-1.3) mg/dL AST 2008 H (17-59) U/L ALT 459 H (4-49) U/L Troponin I 0.051 H* (0.000-0.034) ng/mL Urine Protein (Negative) Urine Ketones (Negative) Urine Blood (Negative) Urine WBC (0-5) /hpf Urine Bacteria (None) /hpf Urine Mucus (None) /hpf Urine Cocaine Screen (NotDetected) 03/26/25 03/26/25 Range/Units 07:14 07:14 WBC (4.50-10.00) 10*3/uL Immature Gran # (0.00-0.04) 10*3/uL Neutrophils # (1.80-7.70) 10*3/uL Monocytes # (0.20-1.00) 10*3/uL Eosinophils # (0.04-0.35) 10*3/uL BUN (9-20) mg/dL Glucose (74-99) mg/dL Magnesium (1.6-2.3) mg/dL Total Bilirubin (0.2-1.3) mg/dL AST (17-59) U/L ALT (4-49) U/L Troponin I (0.000-0.034) ng/mL Urine Protein 2+ H (Negative) Urine Ketones Trace H (Negative) Urine Blood Large H (Negative) Urine WBC 12 H (0-5) /hpf Urine Bacteria Rare H (None) /hpf Urine Mucus Rare H (None) /hpf Urine Cocaine Screen Detected H (NotDetected)
--- NOTE | 2025-03-26 11:55 | XR ---
EXAMINATION TYPE: XR ankle complete RT DATE OF EXAM: 03/26/2025 COMPARISON: NONE HISTORY: Pain, numbness, fall TECHNIQUE: Frontal, lateral and oblique images of the right ankle are obtained. FINDINGS: There is no acute fracture/dislocation evident. The joint spaces appear within normal montoya its. Mild soft tissue swelling over the lateral malleolus. IMPRESSION: 1. No acute fracture or dislocation seen. 2. Mild soft tissue swelling over the lateral malleolus. [facility], , 03/26/2025 11:52 AM
[2025-03-26 12:23] LABS: Creatine Kinase 85717 U/L (55-170)
--- NOTE | 2025-03-26 13:04 | P.CONS ---
History of Present Illness - Reason for Consult Consult date: 03/26/25 Transaminitis Requesting physician: Joanie Be - Chief Complaint Syncopal event, fall - History of Present Illness This a pleasant 39-year-old male who was brought into the emergency department after having a syncopal episode and fall. Patient came in early this morning. Apparently yesterday he used cocaine and then states he must of had a fall or passed out. He was down for undisclosed amount of time. On admission he was noted to have significantly elevated creatinine kinase greater than 100,000, along with elevated liver enzyme studies. Gastroenterology was consulted for transaminitis. Patient denies any previous history of liver disease. Denies any history of hepatitis, no IV drug use. He does drink alcohol daily, heavy at times. He had a CT of the abdomen pelvis that showed a heterogeneous liver which can be seen with diffuse fatty liver hepatocellular disease. He currently denies any abdominal pain, nausea or vomiting. No shortness of breath or chest pain. Review of Systems REVIEW OF SYSTEMS: CARDIOPULMONARY: No chest pain or shortness of breath. Gastrointestinal: No abdominal pain. No nausea or vomiting. No hematemesis, coffee-ground emesis. No rectal bleeding, or melena. GENITOURINARY: No dysuria or hematuria. MUSCULOSKELETAL: Reports normal range of motion. SKIN: No rashes. No jaundice. ENDOCRINE: No chills, fevers. No excessive weight gain or loss. No polydipsia or polyuria. PSYCHIATRIC: Illicit drug use. Alcoholism. Daily smoker. NEUROLOGY: Was found on ground, likely passed out undisclosed amount of time. Denies dizziness, headache. ENT: Vision unremarkable. CONSTITUTIONAL: No recent weight loss. No fever, chills, night sweats. Past Medical History Past Medical History: No Reported History History of Any Multi-Drug Resistant Organisms: None Reported Past Surgical History: No Surgical Hx Reported Past Psychological History: No Psychological Hx Reported Smoking Status: Current every day smoker Past Alcohol Use History: Occasional Past Drug Use History: Cocaine Medications and Allergies Home Medications Medication Instructions Recorded Confirmed Type No Known Home Medications 03/26/25 03/26/25 History Allergies Allergy/AdvReac Type Severity Reaction Status Date / Time No Known Allergies Allergy Verified 03/26/25 10:31 Physical Exam Vitals: Vital Signs Temp Pulse Resp BP Pulse Ox 03/26/25 09:09 78 18 132/79 97 03/26/25 07:14 97 18 152/93 98 03/26/25 05:07 97.3 F L 111 H 20 152/93 99 Intake and Output 03/25/25 03/26/25 03/26/25 22:59 06:59 14:59 Other: Weight 99.79 kg General appearance: The patient is alert, oriented, appears in no acute distress. HET: Head is normocephalic and atraumatic. Conjunctiva pink. Sclera anicteric. Neck: Supple without lymphadenopathy. Trachea midline. Heart: Regular. Lungs: Equal expansion, normal respiratory effort. Abdomen: Soft, nontender, nondistended. Skin: No rashes. No jaundice. Extremities: Normal skin color and turgor. No pedal edema. Neurological: No focal deficits. Alert and oriented x3. Results CBC & Chem 7: 03/26/25 05:38 03/26/25 11:13 Labs: Abnormal Lab Results - Last 24 Hours (Table) 03/26/25 03/26/25 03/26/25 Range/Units 05:38 05:38 05:38 WBC 19.73 H (4.50-10.00) 10*3/uL Immature Gran # 0.16 H (0.00-0.04) 10*3/uL Neutrophils # 15.39 H (1.80-7.70) 10*3/uL Monocytes # 2.61 H (0.20-1.00) 10*3/uL Eosinophils # 0.00 L (0.04-0.35) 10*3/uL BUN 36 H (9-20) mg/dL Glucose 135 H (74-99) mg/dL Magnesium 2.7 H (1.6-2.3) mg/dL Total Bilirubin 1.5 H (0.2-1.3) mg/dL AST 2008 H (17-59) U/L ALT 459 H (4-49) U/L Creatine Kinase (55-170) U/L Troponin I 0.051 H* (0.000-0.034) ng/mL Urine Protein (Negative) Urine Ketones (Negative) Urine Blood (Negative) Urine WBC (0-5) /hpf Urine Bacteria (None) /hpf Urine Mucus (None) /hpf Urine Cocaine Screen (NotDetected) 03/26/25 03/26/25 03/26/25 Range/Units 07:08 07:14 07:14 WBC (4.50-10.00) 10*3/uL Immature Gran # (0.00-0.04) 10*3/uL Neutrophils # (1.80-7.70) 10*3/uL Monocytes # (0.20-1.00) 10*3/uL Eosinophils # (0.04-0.35) 10*3/uL BUN (9-20) mg/dL Glucose (74-99) mg/dL Magnesium (1.6-2.3) mg/dL Total Bilirubin (0.2-1.3) mg/dL AST (17-59) U/L ALT (4-49) U/L Creatine Kinase 665167 H* (55-170) U/L Troponin I (0.000-0.034) ng/mL Urine Protein 2+ H (Negative) Urine Ketones Trace H (Negative) Urine Blood Large H (Negative) Urine WBC 12 H (0-5) /hpf Urine Bacteria Rare H (None) /hpf Urine Mucus Rare H (None) /hpf Urine Cocaine Screen Detected H (NotDetected) CT scan - abdomen: report reviewed (Heterogeneous hypodense appearance of the liver consistent with diffuse fatty infiltration and/or underlying hepatocellular disease. No significant acute finding identified) Assessment and Plan (1) Transaminitis Narrative/Plan: 39-year-old male with alcohol abuse disorder, illicit drug use with recent cindy mandy use who sustained a fall following use alcohol and cocaine and was on the ground for undisclosed amount of time was found to have rhabdomyolysis with significantly elevated creatinine kinase. Subsequently noted to have significantly elevated liver function tests likely acute ischemic hepatitis secondary to rhabdomyolysis and hypoperfusion. Patient without any previous history of liver disease however CT abdomen pelvis noting heterogeneous pattern which can be seen in hepatocellular disease likely secondary to underlying alcohol use disorder. Continue with IV hydration, hepatitis panel pending. Continue to monitor daily LFTs. Current Visit: Yes Status: Acute Code(s): R74.01 - ELEVATION OF LEVELS OF LIVER TRANSAMINASE LEVELS SNOMED Code(s): 659000085 (2) Rhabdomyolysis Current Visit: Yes Status: Acute Code(s): M62.82 - RHABDOMYOLYSIS SNOMED Code(s): 808066902 (3) Alcohol abuse Current Visit: Yes Status: Acute Code(s): F10.10 - ALCOHOL ABUSE, UNCOMPLICA MELANIE SNOMED Code(s): 81210603 (4) Cocaine use Current Visit: Yes Status: Acute Code(s): F14.90 - COCAINE USE, UNSPECIFIED, UNCOMPLICATED SNOMED Code(s): 716351660 (5) Fall Current Visit: Yes Status: Acute Code(s): W19.XXXA - UNSPECIFIED FALL, INITIAL ENCOUNTER SNOMED Code(s): 1276043 Plan: 1. Continue symptomatic and supportive care 2. Continue aggressive hydration 3. Daily CMP 4. Recommend alcohol and illicit drug use abstinence 5. Hepatitis panel pending 6. No further workup at this time from gastroenterology 7. Rest of medical management per primary medical team Thank you for this consultation, we will continue to follow. Dr. Ann-Marie Deluca I agree with the dictator's note, documented as a scribe by Andria Noel.
[2025-03-26 13:18] LABS: ALT 456 U/L (4-49); African American GFR (CKD) >90 (>60 ml/min/1.73 sqM); Albumin 3.4 g/dL (3.5-5.0); Alkaline Phosphatase 69 U/L (38-126); Anion Gap 9 mmol/L; Blood Urea Nitrogen 28 mg/dL (9-20); Calcium 7.9 mg/dL (8.4-10.2); Carbon Dioxide 22 mmol/L (22-30); Chloride 106 mmol/L (98-107); Glucose 102 mg/dL (74-99); Non-African American GFR(CKD) >90 (>60 ml/min/1.73 sqM); Potassium 3.7 mmol/L (3.5-5.1); Sodium 137 mmol/L (137-145); Total Bilirubin 1.4 mg/dL (0.2-1.3); Total Protein 5.9 g/dL (6.3-8.2)
[2025-03-26 13:47] LABS: AST 1709 U/L (17-59)
--- NOTE | 2025-03-26 14:10 | P.CNOR ---
History of Present Illness - [facility] Consult date: 03/26/25 Consult reason: other (Paresthesias right foot.) History of present illness: This is a 39-year-old male who was brought to the emergency department early this morning after waking up in the bathtub. He reportedly used cocaine yesterday afternoon and does not remember much after that. He states that he woke up sideways in the bathtub with his legs dangling over the side. He is unsure as to how long he was out but he is guessing approximately 7 hours. Upon arrival he complained of low back pain and numbness to his right foot. He is having some discomfort in his right buttock and upper thigh. His CK was over 107,000 and liver enzymes were elevated. We are consulted for evaluation for possible compartment syndrome of the right lower extremity. Past Medical History Past Medical History: No Reported History History of Any Multi-Drug Resistant Organisms: None Reported Past Surgical History: No Surgical Hx Reported Past Psychological History: No Psychological Hx Reported Smoking Status: Current every day smoker Past Alcohol Use History: Occasional Past Drug Use History: Cocaine Medications and Allergies Home Medications Medication Instructions Recorded Confirmed Type No Known Home Medications 03/26/25 03/26/25 History Allergies Allergy/AdvReac Type Severity Reaction Status Date / Time No Known Allergies Allergy Verified 03/26/25 10:31 Physical Examination This is a 39-year-old male who is alert and oriented evaluated at bedside in the emergency department. He appears to be in no acute distress. Exam of the head neck revealed no obvious deformity. He has fairly good cervical spine motion without difficulty or pain. Exam of the upper extremities is unremarkable. He has fairly good motion to the shoulders, elbows, wrists and fingers bilaterally. Neurovascular status to the upper extremities is intact. Exam of the thoracic and lumbar spine reveal no obvious deformity. There is mild tenderness about the lower lumbar region with tenderness about the right paraspinal musculature and into the buttock. The gluteus muscle muscles are soft and minimally tender. Exam of the lower extremities reveals no obvious deformity. There is some soft tissue swelling noted to the right thigh. There are no areas of ecchymosis or erythema. There are no open wounds or abrasions. Compartments are soft and nontender to the anterior and posterior thigh as well as the lower leg. He has full foot and ankle motion without difficulty or pain. Full motion of the toes without difficulty or pain. He is able to perform straight leg raise without difficulty. Full dorsiflexion of the foot against resistance as well as full plantarflexion of the foot against resistance. Sensation is dulled to the great toe. Pedal pulse is +2/4 bilaterally. Neurovascular status to the lower extremities is otherwise grossly intact. Results CT of the chest, abdomen and pelvis revealed no acute bony abnormality or fracture. Liver cirrhosis noted. - Labs Labs: Abnormal Lab Results - Last 24 Hours (Table) 03/26/25 03/26/25 03/26/25 Range/Units 05:38 05:38 05:38 WBC 19.73 H (4.50-10.00) 10*3/uL Immature Gran # 0.16 H (0.00-0.04) 10*3/uL Neutrophils # 15.39 H (1.80-7.70) 10*3/uL Monocytes # 2.61 H (0.20-1.00) 10*3/uL Eosinophils # 0.00 L (0.04-0.35) 10*3/uL BUN 36 H (9-20) mg/dL Glucose 135 H (74-99) mg/dL Calcium (8.4-10.2) mg/dL Magnesium 2.7 H (1.6-2.3) mg/dL Total Bilirubin 1.5 H (0.2-1.3) mg/dL AST 2008 H (17-59) U/L ALT 459 H (4-49) U/L Creatine Kinase (55-170) U/L Troponin I 0.051 H* (0.000-0.034) ng/mL Total Protein (6.3-8.2) g/dL Albumin (3.5-5.0) g/dL Urine Protein (Negative) Urine Ketones (Negative) Urine Blood (Negative) Urine WBC (0-5) /hpf Urine Bacteria (None) /hpf Urine Mucus (None) /hpf Urine Cocaine Screen (NotDetected) 03/26/25 03/26/25 03/26/25 Range/Units 07:08 07:14 07:14 WBC (4.50-10.00) 10*3/uL Immature Gran # (0.00-0.04) 10*3/uL Neutrophils # (1.80-7.70) 10*3/uL Monocytes # (0.20-1.00) 10*3/uL Eosinophils # (0.04-0.35) 10*3/uL BUN (9-20) mg/dL Glucose (74-99) mg/dL Calcium (8.4-10.2) mg/dL Magnesium (1.6-2.3) mg/dL Total Bilirubin (0.2-1.3) mg/dL AST (17-59) U/L ALT (4-49) U/L Creatine Kinase 578000 H* (55-170) U/L Troponin I (0.000-0.034) ng/mL Total Protein (6.3-8.2) g/dL Albumin (3.5-5.0) g/dL Urine Protein 2+ H (Negative) Urine Ketones Trace H (Negative) Urine Blood Large H (Negative) Urine WBC 12 H (0-5) /hpf Urine Bacteria Rare H (None) /hpf Urine Mucus Rare H (None) /hpf Urine Cocaine Screen Detected H (NotDetected) 03/26/25 03/26/25 Range/Units 11:13 11:13 WBC (4.50-10.00) 10*3/uL Immature Gran # (0.00-0.04) 10*3/uL Neutrophils # (1.80-7.70) 10*3/uL Monocytes # (0.20-1.00) 10*3/uL Eosinophils # (0.04-0.35) 10*3/uL BUN 28 H 28 H (9-20) mg/dL Glucose 108 H 102 H (74-99) mg/dL Calcium 7.8 L 7.9 L (8.4-10.2) mg/dL Magnesium (1.6-2.3) mg/dL Total Bilirubin 1.4 H (0.2-1.3) mg/dL AST 1709 H (17-59) U/L ALT 456 H (4-49) U/L Creatine Kinase 86593 H* (55-170) U/L Troponin I (0.000-0.034) ng/mL Total Protein 5.9 L (6.3-8.2) g/dL Albumin 3.4 L (3.5-5.0) g/dL Urine Protein (Negative) Urine Ketones (Negative) Urine Blood (Negative) Urine WBC (0-5) /hpf Urine Bacteria (None) /hpf Urine Mucus (None) /hpf Urine Cocaine Screen (NotDetected) H & H 03/26/25 Range/Units 05:38 Hgb 17.0 (13.0-17.0) g/dL Hct 47.9 (39.6-50.0) % Coagulation 03/26/25 Range/Units 05:38 INR 1.1 (<1.2) Result Diagrams: 03/26/25 05:38 03/26/25 11:13 Assessment and Plan (1) Neuropraxia of right lower extremity Current Visit: Yes Status: Acute Code(s): S84.91XA - INJURY OF UNSP NERVE AT LOWER LEG LEVEL, RIGHT LEG, INIT SNOMED Code(s): 371545853 (2) Alcohol abuse Current Visit: Yes Status: Acute Code(s): F10.10 - ALCOHOL ABUSE, UNCOMPLICATED SNOMED Code(s): 57740108 (3) Cocaine use Current Visit: Yes Status: Acute Code(s): F14.90 - COCAINE USE, UNSPECIFIED, UNCOMPLICATED SNOMED Code(s): 789420195 (4) Fall Current Visit: Yes Status: Acute Code(s): W19.XXXA - UNSPECIFIED FALL, INITIAL ENCOUNTER SNOMED Code(s): 9051984 (5) Rhabdomyolysis Current Visit: Yes Status: Acute Code(s): M62.82 - RHABDOMYOLYSIS SNOMED Code(s): 629323459 Plan: The clinical and radiographic findings are discussed with the patient. His exam is most consistent with a neuropraxia to likely the sciatic nerve secondary to having his legs dangling over the tub for several hours. There is no findings consistent with compartment syndrome to the right lower extremity on exam today. It is recommended he continue with internal medicine, GI and renal evaluations. There are no orthopedic surgical indications at this time. He may benefit from IV steroids for the neuropraxia which I will leave up the discretion of internal medicine with his other ongoing medical issues. We will continue to follow peripherally.
[2025-03-26] MEDS: LORazepam 1 MG TAB PO PRN (16:57)
[2025-03-26 17:33] LABS: Hepatitis A Antibody IgM Nonreactive (Nonreactive); Hepatitis B Core IgM Nonreactive (Nonreactive); Hepatitis B Surface Antigen Nonreactive (Nonreactive); Hepatitis C IgG Antibody Nonreactive (Nonreactive)
[2025-03-26] MEDS: DEXAMETHASONE SOD PHOSPHATE 4 MG/ML 1 ML VIAL IVP SCH (20:22)
[2025-03-26] MEDS: GABAPENTIN 100 MG CAP PO SCH (20:23)
[2025-03-26] MEDS: HYDROmorphone 0.5 MG/0.5 ML SYRINGE IVP PRN (20:23)
[2025-03-26] MEDS: HEPARIN SODIUM,PORCINE 5,000 UNIT/ML 1 ML VIAL SQ SCH (23:11)
[2025-03-27] MEDS: FOLIC ACID 1 MG TAB PO SCH (08:42)
[2025-03-27] MEDS: THIAMINE 100 MG TAB PO SCH (08:42)
--- NOTE | 2025-03-27 08:45 | P.PN ---
Subjective Progress Note Date: 03/27/25 Principal diagnosis: Neuropraxia right lower extremity. Rhabdomyolysis. History of substance abuse. This is a 39-year-old male who was brought to the emergency department early mor dasha on 03/26/2025 after waking up in the bathtub. He reportedly used cocaine earlier that afternoon and does not remember much after that. He states that he woke up sideways in the bathtub with his legs dangling over the side. He is unsure as to how long he was out but he is guessing approximately 7 hours. Upon arrival he complained of low back pain and numbness to his right foot. He is having some discomfort in his right buttock and upper thigh. His CK was over 107,000 and liver enzymes were elevated. We are consulted for evaluation for possible compartment syndrome of the right lower extremity. 03/27/2025: The patient states that his symptoms in the right lower extremity are significantly improved. He states that he can feel his foot today. He has no new complaints or concerns today. Vital signs are stable. There are no new lab results at this time. Objective - Vital Signs Vital signs: Vital Signs Temp 98.1 F 03/27/25 03:56 Pulse 62 03/27/25 03:56 Resp 18 03/27/25 03:56 BP 120/74 03/27/25 03:56 Pulse Ox 93 L 03/27/25 03:56 FiO2 Intake & Output 03/26/25 03/27/25 03/27/25 18:59 06:59 18:59 Intake Total 180 240 Output Total 800 2500 775 Balance -903 -2146 -274 Weight 99.79 kg 100 kg Intake: Oral 180 240 Output: Urine 800 2500 775 Other: Voiding Method Toilet Urinal - Exam This is a 39-year-old male in no acute distress. He is alert and oriented x 3. Exam of the lower extremities reveals no obvious deformity. Swelling to the right thigh is improved. Compartments remain soft and nontender about the buttock, thigh and lower leg. He has full foot and ankle motion without difficulty or pain. He is able to perform straight leg raise against resistance without difficulty. Sensation is improved to the foot and great toe. Pedal pulse is +2/4 bilaterally. Neurovascular status to the lower extremities is intact. - Labs CBC & Chem 7: 03/26/25 05:38 03/26/25 11:13 Labs: Abnormal Lab Results - Last 24 Hours (Table) 03/26/25 03/26/25 03/26/25 Range/Units 07:08 07:14 07:14 BUN (9-20) mg/dL Glucose (74-99) mg/dL Calcium (8.4-10.2) mg/dL Total Bilirubin (0.2-1.3) mg/dL AST (17-59) U/L ALT (4-49) U/L Creatine Kinase 506760 H* (55-170) U/L Total Protein (6.3-8.2) g/dL Albumin (3.5-5.0) g/dL Urine Protein 2+ H (Negative) Urine Ketones Trace H (Negative) Urine Blood Large H (Negative) Urine WBC 12 H (0-5) /hpf Urine Bacteria Rare H (None) /hpf Urine Mucus Rare H (None) /hpf Urine Cocaine Screen Detected H (NotDetected) 03/26/25 03/26/25 Range/Units 11:13 11:13 BUN 28 H 28 H (9-20) mg/dL Glucose 108 H 102 H (74-99) mg/dL Calcium 7.8 L 7.9 L (8.4-10.2) mg/dL Total Bilirubin 1.4 H (0.2-1.3) mg/dL AST 1709 H (17-59) U/L ALT 456 H (4-49) U/L Creatine Kinase 25329 H* (55-170) U/L Total Protein 5.9 L (6.3-8.2) g/dL Albumin 3.4 L (3.5-5.0) g/dL Urine Protein (Negative) Urine Ketones (Negative) Urine Blood (Negative) Urine WBC (0-5) /hpf Urine Bacteria (None) /hpf Urine Mucus (None) /hpf Urine Cocaine Screen (NotDetected) Assessment and Plan (1) Neuropraxia of right lower extremity Current Visit: Yes Status: Acute Code(s): S84.91XA - INJURY OF UNSP NERVE AT LOWER LEG LEVEL, RIGHT LEG, INIT SNOMED Code(s): 452945643 (2) Alcohol abuse Current Visit: Yes Status: Acute Code(s): F10.10 - ALCOHOL ABUSE, UNCOMPLICATED SNOMED Code(s): 18794594 (3) Cocaine use Current Visit: Yes Status: Acute Code(s): F14.90 - COCAINE USE, UNSPECIFIED, UNCOMPLICATED SNOMED Code(s): 478119124 (4) Fall Current Visit: Yes Status: Acute Code(s): W19.XXXA - UNSPECIFIED FALL, INITIAL ENCOUNTER SNOMED Code(s): 7013058 (5) Rhabdomyolysis Current Visit: Yes Status: Acute Code(s): M62.82 - RHABDOMYOLYSIS SNOMED Code(s): 908988335 Plan: The clinical and radiographic findings are discussed with the patient. His exam is most consistent with a neuropraxia to likely the sciatic nerve secondary to having his legs dangling over the tub for several hours. There are no findings consistent with compartment syndrome to the right lower extremity on exam today. It is recommended he continue with internal medicine, GI and renal evaluations. There are no orthopedic surgical indications at this time. It is discussed with the patient that I anticipate that his symptoms will continue to improve. He may follow-up with our office as needed.
[2025-03-27 08:50] LABS: Basophils # (A) 0.02 10*3/uL (0.00-0.10); Basophils % (A) 0.2 %; HCT 42.1 % (39.6-50.0); HGB 14.4 g/dL (13.0-17.0); Lymphocytes # (A) 0.72 10*3/uL (0.90-5.00); Lymphocytes % (A) 5.9 %; MCH 31.7 pg (27.0-32.0); MCHC 34.2 g/dL (32.0-37.0); MCV 92.7 fL (80.0-97.0); Mean Platelet Volume 10.8 fL (9.5-12.2); Monocytes # (A) 0.26 10*3/uL (0.20-1.00); Monocytes % (A) 2.1 %; Neutrophils # (A) 11.07 10*3/uL (1.80-7.70); Neutrophils % (A) 91.4 %; Platelet Count 236 10*3/uL (140-440); RBC 4.54 10*6/uL (4.40-5.60); RDW 12.9 % (11.5-14.5); WBC 12.12 10*3/uL (4.50-10.00)
[2025-03-27 09:26] LABS: ALT 492 U/L (4-49); African American GFR (CKD) >90 (>60 ml/min/1.73 sqM); Albumin 3.2 g/dL (3.5-5.0); Alkaline Phosphatase 63 U/L (38-126); Anion Gap 5 mmol/L; Blood Urea Nitrogen 17 mg/dL (9-20); Calcium 8.6 mg/dL (8.4-10.2); Carbon Dioxide 26 mmol/L (22-30); Chloride 108 mmol/L (98-107); Glucose 140 mg/dL (74-99); Magnesium 2.3 mg/dL (1.6-2.3); Non-African American GFR(CKD) >90 (>60 ml/min/1.73 sqM); Phosphorus 3.2 mg/dL (2.5-4.5); Potassium 4.2 mmol/L (3.5-5.1); Sodium 139 mmol/L (137-145); Total Bilirubin 1.1 mg/dL (0.2-1.3); Total Protein 5.7 g/dL (6.3-8.2)
[2025-03-27 10:21] LABS: AST 1178 U/L (17-59)
--- NOTE | 2025-03-27 11:00 | P.PN ---
Subjective Progress Note Date: 03/27/25 Hospital Course: Patient is a 39-year-old male with past medical history of daily alcohol use, cocaine use, marijuana use, who presented to the ER on . He was drinking and using cocaine yesterday, he believes that he lost his consciousness while in the bath, unsure if he had any fall, he spent hours in the bath, not sure how many hours. He says that he has been drinking 1/5 of te quila daily for years, no history of alcohol withdrawal, seizures, DTs. Has never tried to quit. He is complaining of right lower extremity numbness and pain. He says that he woke up with his right lower extremity placed against the the wall of the bath. On arrival he was afebrile, tachycardic in the 90s, BP elevated 139/79, SpO2 99% on room air. CBC showed leukocytosis 19.73 with left shift, normal hemoglobin and platelet count, unremarkable coagulation panel with normal D-dimer, sodium, potassium, chloride, bicarb normal, BUN 36, creatinine 1.05, glucose 135, lactic acid 1.3, phosphorus 4.1, magnesium elevated 2.7, total bilirubin elevated 1.5, elevated AST and ALT 2008 and 459 accordingly, alk phos normal, troponin elevated 0.0 51, BNP normal, CK came back elevated [id number]. UA suggestive of rhabdomyolysis with large amount of urine blood and just 1 urine RBC, proteinuria 2+, UDS positive for cocaine. Patient underwent extensive imaging including CT head and neck that showed no ac anna finding, CTA ches, abdomen pelvis t, suboptimal study without acute PE, few prominent bilateral hilar lymph nodes, heterogenous hypodense appearance of the liver consistent with diffuse fatty infiltration and/or underlying hepatocellular disease.. EKG showed sinus rhythm, no acute ST elevation, QTc 441. Patient was admitted for further management of rhabdomyolysis, elevated liver enzymes, right elbow pain, impending alcohol withdrawal. GI consulted for elevated liver enzymes, hepatitis panel ordered and negative, liver enzymes are trending down. Orthopedic surgery consulted due to concern for possible compartment syndrome, no suspicion for compartment syndrome per orthopedics, symptoms likely caused by neuropraxia secondary to static nerve compression, no interventions planned, patient's symptoms are improving, he is ambulating. Leukocytosis improved, kidney function stable as of 03/27, liver enzymes trending down. Likely discharge on 03/28, continue strict I's and O's and kidney function monitoring as well as CIWA with Ativan Subjective: Feels better today, anxious, feels he is withdrawing from tobacco, ordered nicotine patch. Pertinent positives and negatives as discussed above, a complete review of systems was performed and all other systems are negative. Vitals Signs Reviewed. General: [nontoxic], [no distress], [appears at stated age] Derm: [warm], [dry] Head: [atraumatic], [normocephalic], [symmetric] Eyes: [EOMI], [no lid lag], [anicteric sclera] Mouth: [no lip lesion], [mucus membranes moist] Cardiovascular: [S1S2 reg], [no murmur] Lungs: [CTA bilateral], [no rhonchi, no rales] , [no accessory muscle use] Abdominal: [soft], [ nontender to palpation], [no guarding], [no appreciable organomegaly] Ext: [no gross muscle atrophy], [no edema], [no contractures] Neuro: [ CN II-XI grossly intact], [no focal neuro deficits] Psych: [Alert], [oriented], [appropriate affect] Assessment and Plan:Possible syncope versus alcohol and cocaine intoxication Immobilization for unknown duration Rhabdomyolysis secondary to above Leukocytosis, likely reactive secondary to above Elevated troponin likely secondary to above - Received 3 L of IV normal saline in the ER, added additional 1 L of normal saline, decreased NS to 150 cc/h - Liver enzymes are trending down including AST and ALT, alkaline phosphatase normal, total bilirubin is normal, phosphorus WNL, CK was trending down as of yesterday. - Recheck CK in the morning as well as CMP, magnesium and phosphorus - Strict I's and O's - Telemetry - Continue trending troponins, patient is chest pain-free -monitor kidney function closely, patient is a high risk for developing renal failure Elevated liver enzymes from alcohol use and rhabdomyolisis Elevated total bilirubin Fatty liver infiltration - Hepatitis panel ordered and pending - GI consulted -MELD score was 9 on admission, no steroids indicated for acute alcohol hepatitis, corticosteroids are not indicated for rhabdomyolysis associated liver enzyme elevations as well -Discussed management with patient's mother Alcohol use disorder Cocaine use disorder -CIWA with Ativan, thiamine 100 mg p.o. daily, folic acid 1 mg p.o. daily, social work consulted, discussed importance of cessation Right ankle pain and numbness -Orthopedic surgery consulted, continue conservative management, no plans for intervention, no suspicion for compartment syndrome CODE STATUS: Full code DVT prophylaxis: hepairn Anticipated discharge date: TBD Anticipated discharge place: TBD Objective - Vital Signs Vital signs: Vital Signs Temp 97.7 F 03/27/25 08:00 Pulse 60 03/27/25 08:00 Resp 16 03/27/25 08:00 BP 132/79 03/27/25 08:00 Pulse Ox 99 03/27/25 08:00 FiO2 Intake & Output 03/26/25 03/27/25 03/27/25 18:59 06:59 18:59 Intake Total 180 240 Output Total 800 2500 775 Balance -620 -2500 -612 Weight 99.79 kg 100 kg Intake: Oral 180 240 Output: Urine 800 2500 775 Other: Voiding Method Toilet Urinal - Labs CBC & Chem 7: 03/27/25 07:56 03/27/25 07:56 Labs: Abnormal Lab Results - Last 24 Hours (Table) 03/26/25 03/26/25 03/27/25 Range/Units 11:13 11:13 07:56 WBC 12.12 H (4.50-10.00) 10*3/uL Immature Gran # 0.05 H (0.00-0.04) 10*3/uL Neutrophils # 11.07 H (1.80-7.70) 10*3/uL Lymphocytes # 0.72 L (0.90-5.00) 10*3/uL Eosinophils # 0.00 L (0.04-0.35) 10*3/uL Chloride (98-107) mmol/L BUN 28 H 28 H (9-20) mg/dL Glucose 108 H 102 H (74-99) mg/dL Calcium 7.8 L 7.9 L (8.4-10.2) mg/dL Total Bilirubin 1.4 H (0.2-1.3) mg/dL AST 1709 H (17-59) U/L ALT 456 H (4-49) U/L Creatine Kinase 23828 H* (55-170) U/L Total Protein 5.9 L (6.3-8.2) g/dL Albumin 3.4 L (3.5-5.0) g/dL 03/27/25 Range/Units 07:56 WBC (4.50-10.00) 10*3/uL Immature Gran # (0.00-0.04) 10*3/uL Neutrophils # (1.80-7.70) 10*3/uL Lymphocytes # (0.90-5.00) 10*3/uL Eosinophils # (0.04-0.35) 10*3/uL Chloride 108 H (98-107) mmol/L BUN (9-20) mg/dL Glucose 140 H (74-99) mg/dL Calcium (8.4-10.2) mg/dL Total Bilirubin (0.2-1.3) mg/dL AST 1178 H (17-59) U/L ALT 492 H (4-49) U/L Creatine Kinase (55-170) U/L Total Protein 5.7 L (6.3-8.2) g/dL Albumin 3.2 L (3.5-5.0) g/dL
[2025-03-27] MEDS: NICOTINE 21MG/24HR PATCH TRANSDERM SCH (12:01)
[2025-03-27 12:04] LABS: Creatine Kinase 41343 U/L (55-170)
--- NOTE | 2025-03-27 13:38 | P.PN ---
Subjective Progress Note Date: 03/27/25 Principal diagnosis: Acute hepatitis This a pleasant 39-year-old male who was brought into the emergency department after having a syncopal episode and fall. Patient came in early this morning. Apparently yesterday he used cocaine and then states he must of had a fall or passed out. He was down for undisclosed amount of time. On admission he was noted to have significantly elevated creatinine kinase greater than 100,000, along with elevated liver enzyme studies. Gastroenterology was consulted for transaminitis. Patient denies any previous history of liver disease. Denies any history of hepatitis, no IV drug use. He does drink alcohol daily, heavy at times. He had a CT of the abdomen pelvis that showed a heterogeneous liver which can be seen with diffuse fatty liver hepatocellular disease. He currently denies any abdominal pain, nausea or vomiting. No shortness of breath or chest pain. 03/27/2025 Patient seen and examined today as a follow-up. He is sitting up at the bedside. Denies any abdominal pain nausea or vomiting. States he has been a heavy drinker since he was a teenager. Up until about 6 months ago he was drinking about 10 beers and a pint a day he is now cut back and not drinking daily but will drink 1/5 of alcohol 2 to 3 days a week. He denies any known history of liver disease. Today's repeat labs WBC 12 hemoglobin 14 platelet co unt 236,000 total bilirubin 1.1 AST 1178 ALT 492 alkaline phosphatase 63 creatinine kinase 41,343. Hepatitis panel nonreactive Objective - Vital Signs Vital signs: Vital Signs Temp 97.7 F 03/27/25 08:00 Pulse 60 03/27/25 08:00 Resp 16 03/27/25 08:00 BP 132/79 03/27/25 08:00 Pulse Ox 99 03/27/25 08:00 FiO2 Intake & Output 03/26/25 03/27/25 03/27/25 18:59 06:59 18:59 Intake Total 180 240 Output Total 800 2500 775 Balance -620 -2500 -535 Weight 99.79 kg 100 kg Intake: Oral 180 240 Output: Urine 800 2500 775 Other: Voiding Method Toilet Urinal - Exam General appearance: The patient is alert, oriented, appears in no acute distress. HET: Head is normocephalic and atraumatic. Conjunctiva pink. Sclera anicteric. Neck: Supple without lymphadenopathy. Abdomen: Soft, nontender, nondistended. Extremities: Normal skin color and turgor. No pedal edema Skin: No rashes, no jaundice Neurological: No focal deficits. Alert and oriented. - Labs CBC & Chem 7: 03/27/25 07:56 03/27/25 07:56 Labs: Abnormal Lab Results - Last 24 Hours (Table) 03/26/25 03/26/25 03/26/25 Range/Units 07:08 07:14 07:14 WBC (4.50-10.00) 10*3/uL Immature Gran # (0.00-0.04) 10*3/uL Neutrophils # (1.80-7.70) 10*3/uL Lymphocytes # (0.90-5.00) 10*3/uL Eosinophils # (0.04-0.35) 10*3/uL BUN (9-20) mg/dL Glucose (74-99) mg/dL Calcium (8.4-10.2) mg/dL Total Bilirubin (0.2-1.3) mg/dL AST (17-59) U/L ALT (4-49) U/L Creatine Kinase 337241 H* (55-170) U/L Total Protein (6.3-8.2) g/dL Albumin (3.5-5.0) g/dL Urine Protein 2+ H (Negative) Urine Ketones Trace H (Negative) Urine Blood Large H (Negative) Urine WBC 12 H (0-5) /hpf Urine Bacteria Rare H (None) /hpf Urine Mucus Rare H (None) /hpf Urine Cocaine Screen Detected H (NotDetected) 03/26/25 03/26/25 03/27/25 Range/Units 11:13 11:13 07:56 WBC 12.12 H (4.50-10.00) 10*3/uL Immature Gran # 0.05 H (0.00-0.04) 10*3/uL Neutrophils # 11.07 H (1.80-7.70) 10*3/uL Lymphocytes # 0.72 L (0.90-5.00) 10*3/uL Eosinophils # 0.00 L (0.04-0.35) 10*3/uL BUN 28 H 28 H (9-20) mg/dL Glucose 108 H 102 H (74-99) mg/dL Calcium 7.8 L 7.9 L (8.4-10.2) mg/dL Total Bilirubin 1.4 H (0.2-1.3) mg/dL AST 1709 H (17-59) U/L ALT 456 H (4-49) U/L Creatine Kinase 86057 H* (55-170) U/L Total Protein 5.9 L (6.3-8.2) g/dL Albumin 3.4 L (3.5-5.0) g/dL Urine Protein (Negative) Urine Ketones (Negative) Urine Blood (Negative) Urine WBC (0-5) /hpf Urine Bacteria (None) /hpf Urine Mucus (None) /hpf Urine Cocaine Screen (NotDetected) Assessment and Plan (1) Transaminitis Narrative/Plan: 39-year-old male with alcohol abuse disorder, illicit drug use with recent cocaine use who sustained a fall following use alcohol and cocaine and was on the ground for undisclosed amount of time was found to have rhabdomyolysis with significantly elevated creatinine kinase. Subsequently noted to have significantly elevated liver function tests likely acute ischemic hepatitis secondary to rhabdomyolysis and hypoperfusion. Patient without any previous history of liver disease however CT abdomen pelvis noting heterogeneous pattern which can be seen in hepatocellular disease likely secondary to underlying alcohol use disorder. Continue with IV hydration, hepatitis panel nonreactive. Discussed with patient importance of alcohol abstinence secondary to hepatocellular liver disease. LFTs continue to trend down. No further workup indicated from gastroenterology. Current Visit: Yes Status: Acute Code(s): R74.01 - ELEVATION OF LEVELS OF LIVER TRANSAMINASE LEVELS SNOMED Code(s): 644273725 (2) Rhabdomyolysis Current Visit: Yes Status: Acute Code(s): M62.82 - RHABDOMYOLYSIS SNOMED Code(s): 318734361 (3) Alcohol abuse Current Visit: Yes Status: Acute Code(s): F10.10 - ALCOHOL ABUSE, UNCOMPLICATED SNOMED Code(s): 26474516 (4) Cocaine use Current Visit: Yes Status: Acute Code(s): F14.90 - COCAINE USE, UNSPECIFIED, UNCOMPLICATED SNOMED Code(s): 567127066 (5) Fall Current Visit: Yes Status: Acute Code(s): W19.XXXA - UNSPECIFIED FALL, INITIAL ENCOUNTER SNOMED Code(s): 4663228 Plan: 1. Continue symptomatic and supportive care 2. Continue aggressive hydration 3. Daily CMP 4. Recommend alcohol and illicit drug use abstinence 5. No further workup at this time from gastroenterology 6. Discussed with patient recommendation for outpatient follow-up with gastroenterology to monitor underlying hepatocellular disease as well as repeat LFTs secondary to rhabdomyolysis. 7. Rest of medical management per primary medical team Thank you for this consultation, we will continue to follow. Dr. Ann-Marie Deluca I agree with the dictator's note, documented as a scribe by Andria Noel.
[2025-03-27] MEDS: HYDROcodone/APAP 5-325MG 1 EACH TAB PO PRN (15:47)
[2025-03-28 01:14] VITALS: TEMP 97.9
[2025-03-28] MEDS: PANTOPRAZOLE 40 MG TABLET PO SCH (06:26)
[2025-03-28 08:16] LABS: ALT 547 U/L (4-49); African American GFR (CKD) >90 (>60 ml/min/1.73 sqM); Albumin 3.6 g/dL (3.5-5.0); Alkaline Phosphatase 61 U/L (38-126); Anion Gap 4 mmol/L; Blood Urea Nitrogen 15 mg/dL (9-20); Carbon Dioxide 29 mmol/L (22-30); Chloride 108 mmol/L (98-107); Glucose 96 mg/dL (74-99); Non-African American GFR(CKD) >90 (>60 ml/min/1.73 sqM); Potassium 3.9 mmol/L (3.5-5.1); Sodium 141 mmol/L (137-145); Total Protein 6.1 g/dL (6.3-8.2)
[2025-03-28 08:35] LABS: AST 934 U/L (17-59)
[2025-03-28 09:00] LABS: Creatine Kinase 20569 U/L (55-170)
[2025-03-28 09:08] VITALS: BP 123/77; PULSE 60; RESP 18
--- NOTE | 2025-03-28 12:02 | P.PN ---
Subjective Progress Note Date: 03/28/25 Principal diagnosis: Acute hepatitis This a pleasant 39-year-old male who was brought into the emergency department after having a syncopal episode and fall. Patient came in early this morning. Apparently yesterday he used cocaine and then states he must of had a fall or passed out. He was down for undisclosed amount of time. On admission he was noted to have significantly elevated creatinine kinase greater than 100,000, along with elevated liver enzyme studies. Gastroenterology was consulted for transaminitis. Patient denies any previous history of liver disease. Denies any history of hepatitis, no IV drug use. He does drink alcohol daily, heavy at times. He had a CT of the abdomen pelvis that showed a heterogeneous liver which can be seen with diffuse fatty liver hepatocellular disease. He currently denies any abdominal pain, nausea or vomiting. No shortness of breath or chest pain. 03/27/2025 Patient seen and examined today as a follow-up. He is sitting up at the bedside. Denies any abdominal pain nausea or vomiting. States he has been a heavy drinker since he was a teenager. Up until about 6 months ago he was drinking about 10 beers and a pint a day he is now cut back and not drinking daily but will drink 1/5 of alcohol 2 to 3 days a week. He denies any known history of liver disease. Today's repeat labs WBC 12 hemoglobin 14 platelet co unt 236,000 total bilirubin 1.1 AST 1178 ALT 492 alkaline phosphatase 63 creatinine kinase 41,343. Hepatitis panel nonreactive 03/28/2025 Patient seen and examined today as a follow-up. He states that he continues to feel better every day. Still having some pain with flexing of his ankle. No nausea or vomiting no abdominal pain. LFTs continue to trend down as well as creatinine kinase. Today total bilirubin 1.0 AST 934 ALT 547 alkaline phosphatase 61 [place] [id number] Objective - Vital Signs Vital signs: Vital Signs Temp 97.9 F 03/28/25 00:00 Pulse 54 L 03/28/25 04:00 Resp 16 03/28/25 04:00 BP 121/71 03/28/25 04:00 Pulse Ox 100 03/28/25 04:00 FiO2 Intake & Output 03/27/25 03/27/25 03/28/25 06:59 18:59 06:59 Intake Total 1976 10 Output Total 2500 1525 Balance -2500 451 10 Weight 100 kg 100.2 kg Intake: IV 10 Invasive Line 1 10 Intake, IV Titration 1500 Amount Sodium Chloride 0.9% 1, 1500 000 ml @ 150 mls/hr IV . Q6H40M [facility] Rx#:[id number] Oral 476 Output: Urine 2500 1525 Other: Voiding Method Toilet Toilet Toilet Urinal Urinal Urinal # Voids 1 - Exam General appearance: The patient is alert, oriented, appears in no acute distress. HET: Head is normocephalic and atraumatic. Conjunctiva pink. Sclera anicteric. Neck: Supple without lymphadenopathy. Abdomen: Soft, nontender, nondistended. Extremities: Normal skin color and turgor. No pedal edema Skin: No rashes, no jaundice Neurological: No focal deficits. Alert and oriented. - Labs CBC & Chem 7: 03/27/25 07:56 03/28/25 07:19 Labs: Abnormal Lab Results - Last 24 Hours (Table) 03/27/25 03/27/25 Range/Units 07:56 07:56 WBC 12.12 H (4.50-10.00) 10*3/uL Immature Gran # 0.05 H (0.00-0.04) 10*3/uL Neutrophils # 11.07 H (1.80-7.70) 10*3/uL Lymphocytes # 0.72 L (0.90-5.00) 10*3/uL Eosinophils # 0.00 L (0.04-0.35) 10*3/uL Chloride 108 H (98-107) mmol/L Glucose 140 H (74-99) mg/dL AST 1178 H (17-59) U/L ALT 492 H (4-49) U/L Creatine Kinase 93706 H* (55-170) U/L Total Protein 5.7 L (6.3-8.2) g/dL Albumin 3.2 L (3.5-5.0) g/dL Assessment and Plan (1) Transaminitis Narrative/Plan: 39-year-old male with alcohol abuse disorder, illicit drug use with recent cocaine use who sustained a fall following use alcohol and cocaine and was on the ground for undisclosed amount of time was found to have rhabdomyolysis with significantly elevated creatinine kinase. Subsequently noted to have sig nificantly elevated liver function tests likely acute ischemic hepatitis secondary to rhabdomyolysis and hypoperfusion. Patient without any previous history of liver disease however CT abdomen pelvis noting heterogeneous pattern which can be seen in hepatocellular disease likely secondary to underlying alcohol use disorder. Continue with IV hydration, hepatitis panel nonreactive. Discussed with patient importance of alcohol abstinence secondary to hepatocellular liver disease. LFTs continue to trend down. No further workup indicated from gastroenterology. Current Visit: Yes Status: Acute Code(s): R74.01 - ELEVATION OF LEVELS OF LIVER TRANSAMINASE LEVELS SNOMED Code(s): 232054970 (2) Rhabdomyolysis Current Visit: Yes Status: Acute Code(s): M62.82 - RHABDOMYOLYSIS SNOMED Code(s): 326292149 (3) Alcohol abuse Current Visit: Yes Status: Acute Code(s): F10.10 - ALCOHOL ABUSE, UNCOMPLICATED SNOMED Code(s): 00507294 (4) Cocaine use Current Visit: Yes Status: Acute Code(s): F14.90 - COCAINE USE, UNSPECIFIED, UNCOMPLICATED SNOMED Code(s): 039839201 (5) Fall Current Visit: Yes Status: Acute Code(s): W19.XXXA - UNSPECIFIED FALL, INITIAL ENCOUNTER SNOMED Code(s): 8356771 Plan: 1. Continue symptomatic and supportive care 2. Continue to trend LFTs during this hospitalization 3. Continue IV fluids 4. Recommend alcohol and illicit drug use abstinence 5. No further workup at this time from gastroenterology 6. Discussed with patient recommendation for outpatient follow-up with gastroenterology to monitor underlying hepatocellular disease as well as repeat LFTs secondary to rhabdomyolysis. 7. Rest of medical management per primary medical team Thank you for this consultation, from a gastroenterology standpoint patient can be discharged. Follow-up in 1 to 2 weeks for liver enzymes and to establish for alcohol hepatocellular disease. We will sign off at this time. Dr. Ann-Marie Deluca I agree with the dictator's note, documented as a scribe by Andria Noel.
--- NOTE | 2025-03-28 14:32 | P.DS ---
Providers Date of admission: 03/26/25 09:51 Attending physician: Ritchie Garcia MD Consults: 03/26/25 09:51 Consult Physician Urgent Consulting Provider: Charito Deluca Consult Reason/Comments: acute transaminitis, rhabdo Do you want consulting provider notified?: Yes 03/26/25 10:19 Consult Physician Urgent Consulting Provider: Stefan Rosas Consult Reason/Comments: RLE compartment suspected, [place] [id number] Do you want consulting provider notified?: Yes Primary care physician: Stated None Hospital Course: Discharge Diagnosis: Possible syncope versus alcohol and cocaine intoxication Immobilization for unknown duration Rhabdomyolysis secondary to above Leukocytosis, likely reactive secondary to above Elevated troponin likely secondary to above Elevated liver enzymes from alcohol use and rhabdomyolisis Elevated total bilirubin Fatty liver infiltration Alcohol use disorder Cocaine use disorder Right ankle pain and numbness Hospital Course: Patient is a 39-year-old male with past medical history of daily alcohol use, cocaine use, marijuana use, who presented to the ER on . He was drinking and using cocaine yesterday, he believes that he lost his consciousness while in the bath, unsure if he had any fall, he spent hours in the bath, not sure how many hours. He says that he has been drinking 1/5 of tequila daily for years, no history of alcohol withdrawal, seizures, DTs. Has never tried to quit. He is complaining of right lower extremity numbness and pain. He says that he woke up with his right lower extremity placed against the the wall of the bath. On arrival he was afebrile, tachycardic in the 90s, BP elevated 139/79, SpO2 99% on room air. CBC showed leukocytosis 19.73 with left shift, normal hemoglobin and platelet count, unremarkable coagulation panel with normal D-dimer, sodium, potassium, chloride, bicarb normal, BUN 36, creatinine 1.05, glucose 135, lactic acid 1.3, phosphorus 4.1, magnesium elevated 2.7, total bilirubin elevated 1.5, elevated AST and ALT 2008 and 459 accordingly, alk phos normal, troponin elevated 0.0 51, BNP normal, CK came back elevated [id number]. UA suggestive of rhabdomyolysis with large amount of urine blood and just 1 urine RBC, proteinuria 2+, UDS positive for cocaine. Patient underwent extensive imaging including CT head and neck that showed no acute finding, CTA ches, abdomen pelvis t, suboptimal study without acute PE, few prominent bilateral hilar lymph nodes, heterogenous hypodense appearance of the liver consistent with diffuse fatty infiltration and/or underlying hepatocellular disease.. EKG showed sinus rhythm, no acute ST elevation, QTc 441. Patient was admitted for further management of rhabdomyolysis, elevated liver enzymes, right elbow pain, impending alcohol withdrawal. GI consulted for elevated liver enzymes, hepatitis panel ordered and negative, liver enzymes are trending down. Orthopedic surgery consulted due to concern for possible compartment syndrome, no suspicion for compartment syndrome per orthopedics, symptoms likely caused by neuropraxia secondary to static nerve compression, no interventions planned, patient's symptoms are improving, he is ambulating. Leukocytosis improved, kidney function stable as of 03/27, liver enzymes trending down. Likely discharge on 03/28, continue strict I's and O's and kidney function monitoring as well as CIWA with Ativan 03/28: Feels better, ambulates in the hallway without difficulties. Urine output is good. Only complains of mild lower back pain from [place] [address], myoglobin is not available, it is a send out lab, patient was cleared for discharge from GI standpoint and internal medicine standpoint, provided with scripts for lab work to recheck kidney function, AST, ALT and creatinine kinase in 3 days. Recommended to avoid alcohol, NSAIDs, strenuous exercises before he sees his primary care physician of note, he needs to establish care, was provided with contact information. Patient seen and examined at bedside. Vital signs reviewed and stable. General: [nontoxic], [no distress], [appears at stated age] Derm: [warm], [dry] Head: [atraumatic], [normocephalic], [symmetric] Eyes: [EOMI], [no lid lag], [anicteric sclera] Mouth: [no lip lesion], [mucus membranes moist] Cardiovascular: [S1S2 reg], [no murmur] Lungs: [CTA bilateral], [no rhonchi, no rales] , [no accessory muscle use] Abdominal: [soft], [ nontender to palpation], [no guarding], [no appreciable organomegaly] Ext: [no gross muscle atrophy], [no edema], [no contractures] Neuro: [ CN II-XI grossly intact], [no focal neuro deficits] Psych: [Alert], [oriented], [appropriate affect] A total of 40 minutes of time were spent preparing this complex discharge summary. Patient was discharged on 03/28/2025. Patient Condition at Discharge: Serious Plan - Discharge Summary Discharge Rx Participant: No New Discharge Prescriptions: No Action Dutasteride 0.5 mg PO DAILY Discharge Medication List Dutasteride 0.5 mg PO DAILY 03/28/25 [History] Follow up Appointment(s)/Referral(s): John Wiseman DO [REFERRING] - 1 Week Charito Deluca MD [STAFF PHYSICIAN] - 2 Weeks None,Stated [Primary Care Provider] - 1-2 days Ambulatory/Diagnostic Orders: ALT [LAB.AMB] Time Frame: 3 Days, Location: None Selected AST [LAB.AMB] Time Frame: 3 Days, Location: None Selected Basic Metabolic Panel [LAB.AMB] Time Frame: 3 Days, Location: None Selected Miscellaneous Lab Order [LAB.AMB] Time Frame: 3 Days, Location: None Selected Activity/Diet/Wound Care/Special Instructions: Avoid triggers such as strenuous exercise, dehydration, Aleve, Motrin Follow up with orthopedics as needed.Follow up with GI and PCP Discharge/Stand Alone Forms: NA Meetings in [place], AA Meetings [place], [facility] Resources, Outpatient Counseling, In Substance Abuse Facilities
== END 2025-03-28 15:00 | disposition home health service (06) | DRG 557 ==
LOC: EC 05:05 → 3SCARD 09:51
PROVIDERS: ADMIT Family Medicine; ATTEND Family Medicine
DX: M62.82 Rhabdomyolysis (principal); K72.00 Acute and subacute hepatic failure without coma; F14.129 Cocaine abuse with intoxication, unspecified; F10.129 Alcohol abuse with intoxication, unspecified; K76.0 Fatty (change of) liver, not elsewhere classified; D72.829 Elevated white blood cell count, unspecified; F17.200 Nicotine dependence, unspecified, uncomplicated; R79.89 Other specified abnormal findings of blood chemistry; R31.9 Hematuria, unspecified; M25.571 Pain in right ankle and joints of right foot; M25.521 Pain in right elbow; M54.50 Low back pain, unspecified; R00.0 Tachycardia, unspecified; R03.0 Elevated blood-pressure reading, without diagnosis of hypertension; R55 Syncope and collapse; Z28.310 Unvaccinated for COVID-19; Z28.21 Immunization not carried out because of patient refusal
CPT/HCPCS: 36415; 70450; 71275; 72125; 74177; 80048; 80053; 80074; 80143; 80179; 80306; 81001; 82075; 82140; 82550; 83605; 83735; 83880; 84100; 84484; 85025; 85379; 85610; 85730; 93005; 96361; 96374; 96375; 99291